=== PATIENT | male | born 1940 | race Caucasian/White ===

== ENCOUNTER 2020-03-06 11:05 | Outpatient (REF) | payer MEDICARE, SELFPAY ==
[2020-03-06 12:24] LABS: C Reactive Protein 0.03 mg/dL (< or = 0.50)
[2020-03-06 12:42] LABS: Erythrocyte Sedimentation Rate 7 MM/HR (0-15)
[2020-03-06 12:45] LABS: Vitamin D 25-OH Total 28.8 ng/mL (>30)
[2020-03-07 11:02] LABS: Lyme Abs Screen <0.90 index
== END 2020-03-06 11:06 | disposition home or self-care (01) ==
LOC: HO.LAB 11:05
PROVIDERS: PCP Internal Medicine; Visit Provider Internal Medicine
DX: M25.50 Pain in unspecified joint (principal); E55.9 Vitamin D deficiency, unspecified
CPT/HCPCS: 36415; 82306; 84550; 85652; 86140; 86618

== ENCOUNTER 2020-10-11 10:50 | Outpatient (REF) | payer MEDICARE, SELFPAY ==
[2020-10-11 13:00] LABS: Hemoglobin 12.7 g/dl (14.0-18.0); Mean Corpuscular HGB Conc 33.4 g/dl (31.0-36.0); Mean Corpuscular Hemoglobin 30.5 pg (27.0-33.0); Mean Corpuscular Volume 91.3 fL (80-98); Mean Platelet Volume 10.3 fL (9.4-12.4); Platelet Count 208 X10*3/uL (160-400); Red Blood Count 4.16 X10*6/uL (4.60-5.80); Red Cell Distribution Width 13.4 % (11.0-16.0)
[2020-10-11 13:18] LABS: Alanine Aminotransferase 20 U/L (0-40); Albumin Level 3.8 g/dL (3.5-5.0); Alkaline Phosphatase 74 U/L (39-117); Anion Gap 11 (12-20); Aspartate Amino Transferase 26 U/L (5-37); Bilirubin Total 0.9 mg/dL (0.0-1.0); Blood Urea Nitrogen 19 mg/dL (9-16); Calcium 8.4 mg/dL (8.4-10.2); Carbon Dioxide 27 mmol/L (22-29); Chloride 107 mmol/L (96-108); Cholesterol 211 mg/dL; Estimated Glomerular Filt Rate > 60; Glucose Fasting 89 mg/dL (60-99); HDL Cholesterol 56 mg/dL; LDL Cholesterol Calculated 142 mg/dl; Potassium 4.5 mmol/L (3.3-5.1); Sodium 140 mmol/L (135-145); Total Protein 6.1 g/dL (6.5-8.0); Triglycerides 65 mg/dL
[2020-10-11 13:45] LABS: Prostate Specific Antigen 4.94 ng/mL (<0.05-4.0)
== END 2020-10-11 10:51 | disposition home or self-care (01) ==
LOC: HO.MANLDS 10:50
PROVIDERS: PCP Internal Medicine; Visit Provider Internal Medicine
DX: N40.0 Benign prostatic hyperplasia without lower urinary tract symptoms (principal); E78.00 Pure hypercholesterolemia, unspecified; I10 Essential (primary) hypertension
CPT/HCPCS: 36415; 80053; 80061; 84153; 85027

== ENCOUNTER 2021-10-17 08:53 | Outpatient (REF) | payer MEDICARE, SELFPAY ==
[2021-10-17 11:03] LABS: MANUAL DIFF FLAG NO
[2021-10-17 11:07] LABS: Basophils Percent Auto 0.8 % (0-2); Eosinophils Absolute Auto 0.2 X10*3/uL (0.0-0.4); Hematocrit 41.8 % (42.0-52.0); Hemoglobin 14.1 g/dl (14.0-18.0); Imm Gran Abs Auto 0.01 X10*3/uL (0.00-0.03); Imm Gran Pct Auto 0.3 % (0.0-0.4); Lymphocytes Absolute Auto 1.8 X10*3/uL (1.2-4.9); Mean Corpuscular HGB Conc 33.7 g/dl (31.0-36.0); Mean Corpuscular Hemoglobin 30.4 pg (27.0-33.0); Mean Corpuscular Volume 90.1 fL (80.0-98.0); Mean Platelet Volume 10.5 fL (9.4-12.4); Monocytes Absolute Auto 0.5 X10*3/uL (0.1-1.2); Monocytes Percent Auto 11.8 % (2-11); Neutrophils Absolute Auto 1.3 x10*3/uL (2.0-8.3); Neutrophils Percent Auto 35.1 % (45-73); Platelet Count 217 X10*3/uL (160-400); Red Blood Count 4.64 X10*6/uL (4.60-5.80); Red Cell Distribution Width 13.2 % (11.0-16.0); White Blood Count 3.8 X10*3/uL (4.8-10.8)
[2021-10-17 11:43] LABS: Alanine Aminotransferase 11 U/L (0-40); Albumin Level 4.1 g/dL (3.5-5.0); Alkaline Phosphatase 78 U/L (39-117); Anion Gap 13 (12-20); Aspartate Amino Transferase 18 U/L (5-37); Bilirubin Total 0.7 mg/dL (0.0-1.0); Blood Urea Nitrogen 15 mg/dL (9-16); Carbon Dioxide 30 mmol/L (22-29); Chloride 105 mmol/L (96-108); Cholesterol 250 mg/dL; Estimated Glomerular Filt Rate > 60; Glucose Random 99 mg/dL (60-115); HDL Cholesterol 60 mg/dL; LDL Cholesterol Calculated 166 mg/dl; Potassium 4.7 mmol/L (3.3-5.1); Sodium 143 mmol/L (135-145); Total Protein 6.6 g/dL (6.5-8.0); Triglycerides 121 mg/dL
[2021-10-17 12:11] LABS: Prostate Specific Antigen 5.17 ng/mL (<0.05-4.0)
== END 2021-10-17 08:54 | disposition home or self-care (01) ==
LOC: HO.MANLDS 08:53
PROVIDERS: Visit Provider Internal Medicine
DX: Z00.01 Encounter for general adult medical examination with abnormal findings (principal); Z12.5 Encounter for screening for malignant neoplasm of prostate; N40.0 Benign prostatic hyperplasia without lower urinary tract symptoms; E78.00 Pure hypercholesterolemia, unspecified
CPT/HCPCS: 36415; 80053; 80061; 84153; 85025

== ENCOUNTER 2022-10-29 08:02 | Outpatient (REF) | payer MEDICARE, SELFPAY ==
[2022-10-29 13:42] LABS: MANUAL DIFF FLAG NO
[2022-10-29 13:46] LABS: Basophils Percent Auto 0.7 % (0-2); Eosinophils Absolute Auto 0.2 X10*3/uL (0.0-0.4); Eosinophils Percent Auto 3.4 % (0-4); Hematocrit 42.2 % (42.0-52.0); Hemoglobin 13.9 g/dl (14.0-18.0); Imm Gran Abs Auto 0.01 X10*3/uL (0.00-0.03); Imm Gran Pct Auto 0.2 % (0.0-0.4); Lymphocytes Percent Auto 46.5 % (20-40); Mean Corpuscular HGB Conc 32.9 g/dl (31.0-36.0); Mean Corpuscular Hemoglobin 30.1 pg (27.0-33.0); Mean Corpuscular Volume 91.3 fL (80.0-98.0); Mean Platelet Volume 10.4 fL (9.4-12.4); Monocytes Absolute Auto 0.6 X10*3/uL (0.1-1.2); Monocytes Percent Auto 12.5 % (2-11); Neutrophils Absolute Auto 1.6 x10*3/uL (2.0-8.3); Neutrophils Percent Auto 36.7 % (45-73); Platelet Count 234 X10*3/uL (160-400); Red Blood Count 4.62 X10*6/uL (4.60-5.80); Red Cell Distribution Width 13.4 % (11.0-16.0); White Blood Count 4.4 X10*3/uL (4.8-10.8)
[2022-10-29 14:13] LABS: Alanine Aminotransferase 12 U/L (0-40); Alkaline Phosphatase 70 U/L (39-117); Anion Gap 10 (12-20); Aspartate Amino Transferase 20 U/L (5-37); Bilirubin Total 0.5 mg/dL (0.0-1.0); Blood Urea Nitrogen 20 mg/dL (9-16); Calcium 9.8 mg/dL (8.4-10.2); Carbon Dioxide 30 mmol/L (22-29); Chloride 108 mmol/L (96-108); Cholesterol 254 mg/dL (<200); Estimated Glomerular Filt Rate > 60; Glucose Random 92 mg/dL (60-115); HDL Cholesterol 50 mg/dL (>40); LDL Cholesterol Calculated 172 mg/dL (<100); Potassium 4.9 mmol/L (3.3-5.1); Sodium 143 mmol/L (135-145); Total Protein 6.7 g/dL (6.5-8.0); Triglycerides 160 mg/dL (<150)
== END 2022-10-29 08:03 | disposition home or self-care (01) ==
LOC: HO.MANLDS 08:02
PROVIDERS: Visit Provider Physician Assistant
DX: E78.2 Mixed hyperlipidemia (principal)
CPT/HCPCS: 36415; 80053; 80061; 85025

== ENCOUNTER 2023-02-21 07:18 | Outpatient (REF) | payer MEDICARE, SELFPAY ==
[2023-02-21 13:26] LABS: MANUAL DIFF FLAG NO
[2023-02-21 13:36] LABS: Basophils Percent Auto 0.9 % (0-2); Eosinophils Absolute Auto 0.2 X10*3/uL (0.0-0.4); Eosinophils Percent Auto 5.3 % (0-4); Hematocrit 43.5 % (42.0-52.0); Hemoglobin 14.5 g/dl (14.0-18.0); Imm Gran Abs Auto 0.01 X10*3/uL (0.00-0.03); Imm Gran Pct Auto 0.2 % (0.0-0.4); Lymphocytes Absolute Auto 2.1 X10*3/uL (1.2-4.9); Mean Corpuscular HGB Conc 33.3 g/dl (31.0-36.0); Mean Corpuscular Hemoglobin 30.3 pg (27.0-33.0); Mean Corpuscular Volume 90.8 fL (80.0-98.0); Mean Platelet Volume 10.5 fL (9.4-12.4); Monocytes Absolute Auto 0.6 X10*3/uL (0.1-1.2); Monocytes Percent Auto 12.5 % (2-11); Neutrophils Absolute Auto 1.6 x10*3/uL (2.0-8.3); Neutrophils Percent Auto 34.1 % (45-73); Platelet Count 224 X10*3/uL (160-400); Red Blood Count 4.79 X10*6/uL (4.60-5.80); Red Cell Distribution Width 13.5 % (11.0-16.0); White Blood Count 4.6 X10*3/uL (4.8-10.8)
[2023-02-21 14:10] LABS: Alanine Aminotransferase 13 U/L (0-40); Albumin Level 3.8 g/dL (3.5-5.0); Alkaline Phosphatase 76 U/L (39-117); Anion Gap 11 (12-20); Aspartate Amino Transferase 22 U/L (5-37); Bilirubin Total 0.6 mg/dL (0.0-1.0); Blood Urea Nitrogen 17 mg/dL (9-16); Calcium 9.1 mg/dL (8.4-10.2); Carbon Dioxide 28 mmol/L (22-29); Chloride 105 mmol/L (96-108); Cholesterol 261 mg/dL (<200); Estimated Glomerular Filt Rate > 60; Glucose Random 85 mg/dL (60-115); HDL Cholesterol 58 mg/dL (>40); LDL Cholesterol Calculated 184 mg/dL (<100); Sodium 140 mmol/L (135-145); Total Protein 6.7 g/dL (6.5-8.0); Triglycerides 98 mg/dL (<150)
== END 2023-02-21 07:19 | disposition home or self-care (01) ==
LOC: HO.MANLDS 07:18
PROVIDERS: Visit Provider Internal Medicine
DX: E78.2 Mixed hyperlipidemia (principal)
CPT/HCPCS: 36415; 80053; 80061; 85025

== ENCOUNTER 2024-02-17 06:29 | Outpatient (REF) | payer MEDICARE, SELFPAY ==
--- OUTSIDE RECORDS SUMMARY | 2024-02-17 06:31 | XMS_ITS | Data Portability ---
Author Organization [facility] Address [address] [place] [address] Assessment Encounter Date Assessment Date Assessment LastModified by Organization Details LastModified Time 03/05/2023 03/05/2023 [id number] [place] [id number] (TUNNEL MAN) : MDM LOW MUST MEET 2 OF 3 ELEMENTS: PROBLEMS, DATA OR RISK ELEMENT 1: PROBLEMS ADDRESSED (LOW): 2 OR MORE SELF-LIMITED OR MINOR PROBLEMS OR 1 STABLE CHRONIC ILLNESS OR 1 ACUTE UNCOMPLICATED ILLNESS OR INJURY ELEMENT 2: DATA TO BE REVISED AND ANALYZED (LOW) MUST MEET 1 OF 2 CATEGORIES: CATEGORY 1. REVIEW OF PRIOR EXTERNAL NOTES/RESULTS, ORDERING OF TEST(S) CATEGORY 2. ASSESSMENT REQUIRING INDEPENDENT HISTORIAN(S) INCLUDE WHO THE HISTORIAN IS AND RELATION TO PT AND WHY PT IS UNABLE TO GIVE COMPLETE HISTORY ELEMENT 3: RISK (LOW) RISK OF COMPLICATIONS AND/OR MORBIDITY OR MORTALITY OF PATIENT MANAGEMENT PROVIDER MUST THOROUGHLY DOCUMENT ALL OF THE ELEMENTS COVERED Not available 03/05/2023 12:29:17 04/30/2023 04/30/2023 [id number] [place] [id number] (TUNNEL MAN) MDM MODERATE MUST MEET 2 OUT OF 3 ELEMENTS: PROBLEMS, DATA OR RISK ELEMENT 1: PROBLEMS ADDRESSED 1 OR MORE CHRONIC ILLNESS WITH EXACERBATION OR 2 OR MORE STABLE CHRONIC ILLNESSES OR 1 UNDIAGNOSED NEW PROBLEM OR 1 ACUTE ILLNESS W/SYMPTOMS OR 1 ACUTE COMPLICATED INJURY ELEMENT 2: DATA MUST MEET 1 OF 3 CATEGORIES CATEGORY 1: REVIEW OF PRIOR EXTERNAL NOTES, REVIEW OF RESULTS, ORDERING OF EACH TEST, ASSESSMENT REQUIRING INDEPENDENT HISTORIAN OR CATEGORY 2: INDEPENDENT INTERPRETATION OF TESTS BY ANOTHER PHYSICIAN OR SPECIALIST OR CATEGORY 3: DISCUSSION OF MGT OR TEST INTERPRETATION W/EXTERNAL PHYSICIAN OR SPECIALIST ELEMENT 3: RISK RISK OF COMPLICATIONS AND/OR MORBIDITY OR MORTALITY OF PATIENT MANAGEMENT PROVIDER MUST THOROUGHLY DOCUMENT EACH ELEMENT THAT IS COVERED Not available 04/30/2023 10:43:06 06/20/2023 06/20/2023 [id number] [place] [id number] (TUNNEL MAN) : MDM LOW MUST MEET 2 OF 3 ELEMENTS: PROBLEMS, DATA OR RISK ELEMENT 1: PROBLEMS ADDRESSED (LOW): 2 OR MORE SELF-LIMITED OR MINOR PROBLEMS OR 1 STABLE CHRONIC ILLNESS OR 1 ACUTE UNCOMPLICATED ILLNESS OR INJURY ELEMENT 2: DATA TO BE REVISED AND ANALYZED (LOW) MUST MEET 1 OF 2 CATEGORIES: CATEGORY 1. REVIEW OF PRIOR EXTERNAL NOTES/RESULTS, ORDERING OF TEST(S) CATEGORY 2. ASSESSMENT REQUIRING INDEPENDENT HISTORIAN(S) INCLUDE WHO THE HISTORIAN IS AND RELATION TO PT AND WHY PT IS UNABLE TO GIVE COMPLETE HISTORY ELEMENT 3: RISK (LOW) RISK OF COMPLICATIONS AND/OR MORBIDITY OR MORTALITY OF PATIENT MANAGEMENT PROVIDER MUST THOROUGHLY DOCUMENT ALL OF THE ELEMENTS COVERED Not available 06/20/2023 15:31:30 07/01/2023 07/01/2023 [id number] [place] [id number] (TUNNEL MAN) : [facility] LOW MUST MEET 2 OF 3 ELEMENTS: PROBLEMS, DATA OR RISK ELEMENT 1: PROBLEMS ADDRESSED (LOW): 2 OR MORE SELF-LIMITED OR MINOR PROBLEMS OR 1 STABLE CHRONIC ILLNESS OR 1 ACUTE UNCOMPLICATED ILLNESS OR INJURY ELEMENT 2: DATA TO BE REVISED AND ANALYZED (LOW) MUST MEET 1 OF 2 CATEGORIES: CATEGORY 1. REVIEW OF PRIOR EXTERNAL NOTES/RESULTS, ORDERING OF TEST(S) CATEGORY 2. ASSESSMENT REQUIRING INDEPENDENT HISTORIAN(S) INCLUDE WHO THE HISTORIAN IS AND RELATION TO PT AND WHY PT IS UNABLE TO GIVE COMPLETE HISTORY ELEMENT 3: RISK (LOW) RISK OF COMPLICATIONS AND/OR MORBIDITY OR MORTALITY OF PATIENT MANAGEMENT PROVIDER MUST THOROUGHLY DOCUMENT ALL OF THE ELEMENTS COVERED Not available 07/01/2023 12:37:57 09/24/2023 09/24/2023 [id number] [place] [id number] (TUNNEL MAN) [facility] MODERATE MUST MEET 2 OUT OF 3 ELEMENTS: PROBLEMS, DATA OR RISK ELEMENT 1: PROBLEMS ADDRESSED 1 OR MORE CHRONIC ILLNESS WITH EXACERBATION OR 2 OR MORE STABLE CHRONIC ILLNESSES OR 1 UNDIAGNOSED NEW PROBLEM OR 1 ACUTE ILLNESS W/SYMPTOMS OR 1 ACUTE COMPLICATED INJURY ELEMENT 2: DATA MUST MEET 1 OF 3 CATEGORIES CATEGORY 1: REVIEW OF PRIOR EXTERNAL NOTES, REVIEW OF RESULTS, ORDERING OF EACH TEST, ASSESSMENT REQUIRING INDEPENDENT HISTORIAN OR CATEGORY 2: INDEPENDENT INTERPRETATION OF TESTS BY ANOTHER PHYSICIAN OR SPECIALIST OR CATEGORY 3: DISCUSSION OF MGT OR TEST INTERPRETATION W/EXTERNAL PHYSICIAN OR SPECIALIST ELEMENT 3: RISK RISK OF COMPLICATIONS AND/OR MORBIDITY OR MORTALITY OF PATIENT MANAGEMENT PROVIDER MUST THOROUGHLY DOCUMENT EACH ELEMENT THAT IS COVERED Not available 09/24/2023 11:00:54 Plan of Treatment Reminders Order Date Submit Date Provider Last Modified By Organization Details Last Modified Time Details Appointments ANNUAL EXAM 2023 10:00A M DR PARKER Not available Not available Not available Lab lipid panel, blood 2023 024 [facility], [address] [place] [address], [id number], 06/20/2023 15:38:28 CMP, serum or plasma 2023 024 [facility], [address] [place] [address], [id number], 09/24/2023 11:16:39 CBC 2023 024 [facility], [address] [place] [address], [id number], 09/24/2023 11:16:39 lipid panel, blood 2023 024 [facility], [address] [place] [address], [place], [id number], 09/24/2023 11:16:40 PSA, serum or plasma 2023 024 [facility], [address] [place] [address], [id number], 09/24/2023 11:16:40 Referral None recorded. Procedures None recorded. Surgeries None recorded. Imaging None recorded. Medication Orders metoprolo l succinate ER 50 mg tablet,ex tended release 24 hr 2023 024 [facility] #[id number], [address] [place] [address], [id number], 06/20/2023 15:32:12 sildenafi l 100 mg tablet 2023 024 [id number], [address], [place], [id number], 04/30/2023 10:07:34 metoprolo l succinate ER 25 mg tablet,ex tended release 24 hr 2023 024 [facility] #[id number], [address], [place], [id number], 06/20/2023 15:32:09 metoprolo l succinate ER 100 mg tablet,ex tended release 24 hr 2023 024 [facility], [address] [place] [address], [id number], 06/20/2023 15:33:30 Patient TargetsNo targets recorded. Patient Instructions Encounter Date Encounter Id Patient Instructions Last Modified By Organization Details Last Modified Time 03/05/2023 [id number] Peripheral Arterial Disease (PAD): Care Instructions Not available 03/05/2023 12:27:46 09/24/2023 [id number] lumbar spinal stenosis: care instructions Not available 09/24/2023 11:02:43 benign prostatic hyperplasia: care instructions Not available 09/24/2023 11:05:36 Reason for Referral None Reported. Results Created Date Observation Date Name Description Value Unit Range Abnormal Flag Note LastModifiedBy Organization Detail LastModifiedTime Result Notes None recorded. Problems Name Problem SNOMED Code Status Onset Date Resolution Date Notes Provider Name and Address Organization Details Recorded Time Lumbar discogen ic pain 019157656 Active 2018 Not Available [facility] 12:37:02 Restless legs 82524041 Active 2019 Not Available [facility] 12:37:01 Eczema 47782321 Active 2019 Not Available [facility] 12:37:02 Decompre ssion of lumbar spine Completed 201804/26/2018 Benjamin Parker, DO [address] [place], [address], [facility] 12:47:08 Ventricu lar prematur e beats 46971685 Active 2020 Benjamin Parker, DO [address] [place], [address], [facility] 1 09:38:05 Hypercho lesterol emia 59514511 Active 2017 Not Available [facility] 1 12:37:01 Herniati on 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 79669211616 4106 Active 2017 Not Available [facility] 1 12:37:01 Divertic ular disease 203395379 Active 2017 Not Available [facility] 1 12:37:02 Benign prostati c hyperpla beth 459690194 Active 2017 Not Available [facility] 1 12:37:02 Spinal stenosis of lumbar region 80808277 Active 2017 Not Available [facility] 1 12:37:02 Lumbar radiculo connor 361178343 Active 2017 Not Available [facility] 1 12:37:01 Lumbar spondylo sis 293119233 Active 2017 Not Available [facility] 1 12:37:02 Carotid bruit 360118215 Active 2017 Not Available [facility] 1 12:37:01 Pain of right knee joint 63736019173 4100 Active 2021 Benjamin Parker, DO [address] [place], [address], [facility] 2 10:58:23 Osteoart hritis of right knee joint 53816723122 9100 Active 2021 Benjamin Parker, DO [address] [place], [address], [facility] 2 16:44:26 Acquired trigger finger 2027916 Active 2021 JOSE MARTIN [address] [place], [address], [facility] 2 11:01:31 Gastroen teritis 80635841 Active 2022 JOSE MARTIN [address] [place], [address], [facility] 3 14:58:17 Cough 02306716 Active 2022 JOSE MARTIN [address] [place], [address], [facility] 3 14:59:16 Intermit tent claudica tion 37450082 Active 2022 JOSE MARTIN [address] [place] [address], [address], [facility] 3 09:27:00 Pain of right shoulder joint 28033035589 614773 Active 2022 JOSE MARTIN [address] [place] [address], [address], [facility] 3 09:27:58 Acute urinary tract infectio n 537647132 Active 2022 JOSE MARTIN [address] [place] [address], [address], [facility] 3 11:49:42 Erectile dysfunct ion 341946925 Active 2022 Benjamin Parker, DO [address] [place] [address], [address], [facility] 3 15:58:08 Hyperten sive disorder 33517198 Active 2022 Benjamin Parker, DO [address] [place] [address], [address], [facility] 3 15:11:04 Peripher al vascular disease 205336530 Active 2023 Benjamin Parker DO [address] [place] [address], [address], [facility] 4 12:28:51 Cervico- occipita l neuralgi a 79655527 Active 2023 Benjamin Parker, DO [address] [place], [address], [facility] 4 11:01:06 Problem Notes None recorded. Procedures Surgical History Date Name Laterality Status Provider Name and Address Organization Details Recorded Time 8 Colonoscopy completed Yenifer Chawla [facility] 10/08/2017 10:01:09 Imaging Results None recorded. Procedure Notes None recorded. Medical Equipment None Reported. Allergies Allergen ID Allergen Name Allergen Category Reaction Reaction Severity Criticality Documentation Date Start Date Code Code System Note Provider Name and Address Organization Details Recorded Time 397 Product containin g 3-hydroxy -3-methyl glutaryl- coenzyme A reductase inhibitor (product) medicatio n myalgias (muscle pain) Not available Not available 05/07/2017 29491 009 SNOMED Yenifer adams [facility] 8 11:36:44 398 Substance with sulfonami de structure and antibacte rial mechanism of action (substanc e) medicatio n Not available Not available Not available 05/07/2017 58144 8003 SNOMED Yenifer adams [facility] 8 11:36:48 Medications Name Sig Start Date Stop Date Status Note LastModified by Organization Details LastModified Time prednisone 10 mg tablet take 4 tabs x 3 daystake 3 tabs x 3 days take 2 tabs x 3 daystake 1 tab x 3 days 10/28 completed Not Available Not Available Not Available doxycycline hyclate 100 mg capsule TK ONE C PO BID FOR 10 DAYS 04/26 completed Not Available Not Available Not Available sildenafil 50 mg tablet TAKE 1 TABLET BY MOUTH NEEDED FOR 30 DAYS. 04/30 completed Not Available Not Available Not Available benzonatate 200 mg capsule TAKE 1 CAPSULE BY MOUTH THREE TIMES DAILY FOR 7 DAYS NEEDED 05/03 completed Not Available Not Available Not Available metoprolol succinate ER 50 mg tablet,exte nded release 24 hr TAKE 1 TABLET BY MOUTH EVERY DAY 06/19 completed Not Available Not Available Not Available cephalexin 250 mg tablet TAKE 1 TABLET BY MOUTH THREE TIMES DAILY FOR 15 DAYS 02/05 completed Not Available Not Available Not Available metoprolol succinate ER 100 mg tablet,exte nded release 24 hr Take 1 tablet every day by oral route for 90 days. active Not Available Not Available No t Available clobetasol 0.05 % topical cream APPLY TOPICALLY TO THE AFFECTED AREA TWICE DAILY FOR 10 DAYS 02/05 completed Not Available Not Available Not Available ciprofloxac in 250 mg tablet TAKE 1 TABLET BY MOUTH EVERY 12 HOURS FOR 5 DAYS 05/03 completed Not Available Not Available Not Available aspirin 81 mg tablet,johnnie yed release Take 1 tablet every day by oral route. 09/23 completed Not Available Not Available Not Available sildenafil 100 mg tablet TAKE 1 TABLET BY MOUTH EVERY DAY 04/30 completed Not Available Not Available Not Available triamcinolo ne acetonide 0.1 % topical cream APPLY A THIN LAYER TO THE AFFECTED AREA(S) BY TOPICAL ROUTE 2 TIMES PER DAY active Not Available Not Available No t Available amoxicillin 500 mg tablet TAKE 1 TABLET BY MOUTH EVERY 8 HOURS FOR 10 DAYS 02/05 completed Not Available Not Available Not Available pramipexole 0.5 mg tablet TAKE 1 TABLET BY MOUTH ONCE DAILY 2023 active Not Available Not Available Not Avai lable tacrolimus 0.1 % topical ointment 08/18 completed Not Available Not Available Not Available Valtrex 1 gram tablet Take 1 tablet every 12 hours by oral route. 08/18 completed Not Available Not Available Not Available mupirocin 2 % topical ointment APPLY SMALL AMOUNT EXTERNALL Y TO THE AFFECTED AREA THREE TIMES DAILY 10/24 completed Not Available Not Available Not Available metoprolol succinate ER 25 mg tablet,exte nded release 24 hr TAKE 1 TABLET BY MOUTH EVERY DAY 06/19 completed Not Available Not Available Not Available Percocet 5 mg-325 mg tablet Take 1 tablet every 8 hours by oral route for 7 days. 10/28 completed Not Available Not Available Not Available terazosin 10 mg capsule TAKE 1 CAPSULE BY MOUTH DAILY 10/30 completed Not Available Not Available Not Available Metamucil (sugar) oral powder Take 1 tbsp every day by oral route. active Not Available Not Available No t Available rosuvastati n 5 mg tablet TAKE 1 TABLET BY MOUTH ONCE DAILY 10/24 completed Not Available Not Available Not Available Boostrix Tdap 2.5 Lf unit-8 mcg-5 Lf/0.5 mL intramuscul ar syringe 09/02 completed Not Available Not Available Not Available Central-Vit e 04/26 completed Not Available Not Available Not Available Vitamin D3 1000 units daily 12/24 completed Not Available Not Available Not Available Metamucil 10/24 completed Not Available Not Available Not Available multivitami n daily active Not Available Not Available Not Available Vitamin B Complex With C 1000 units daily active Not Available Not Available No t Available oxycodone 10 mg tablet Take 1 tablet 4 times a day by oral route as needed for 7 days. 10/28 completed Not Available Not Available Not Available GaviLyte-G 236 gram-22.74 gram-6.74 gram-5.86 gram oral solution 09/02 completed Not Available Not Available Not Available magnesium 400 mg (as magnesium oxide) capsule Take 1 capsule every day by oral route. 10/30 completed Not Available Not Available Not Available Fluad 2016- 65yr up(PF)45 mcg(15 mcgx3)/0.5 mL intramuscul ar syringe 09/02 completed Not Available Not Available Not Available Fluad Quad (6 5yr up)(PF) 60 mcg (15 mcg x 4)/0.5mL IM syringe ADMINISTE R 0.5ML IN THE MUSCLE DIRECTED 04/26 completed Not Available Not Available Not Available Mucinex Instasoothe Cough 5 mg-2 mg lozenges Take 1 lozenge 4 times a day by oral route as needed for 7 days. 05/03 completed Not Available Not Available Not Available Vitals Date Recorded Body height Body mass index (BMI) Body weight Heart rate Oxygen saturation Oxygen saturation in Arterial blood by Pulse oximetry Systolic blood pressure Diastolic blood pressure Provider Name and Address Organization Details Last Updated DateTime 4 165.1 cm 24.4 kg/m2 47327.6 4 g 57 /min 96 % 96 % 152 mm[Hg] 88 mm[Hg] Benjamin Parker, DO [address] [place], [address] [place] - [facility] 4 10:05:58 Date Recorded Body height Body mass index (BMI) Body weight Heart rate Oxygen saturation Oxygen saturation in Arterial blood by Pulse oximetry Systolic blood pressure Diastolic blood pressure Provider Name and Address Organization Details Last Updated DateTime 4 165.1 cm 24.5 kg/m2 99892.0 8 g 48 /min 98 % 98 % 168 mm[Hg] 92 mm[Hg] Kaycee Edson [facility] 4 15:01:32 Date Recorded Body height Body mass index (BMI) Body weight Heart rate Respiratory rate Oxygen saturation Oxygen saturation in Arterial blood by Pulse oximetry Systolic blood pressure Diastolic blood pressure Systolic blood pressure Diastolic blood pressure Provider Name and Address Organization Details Last Updated DateTime 4 165.1 cm 24.1 kg/m2 28361.8 9 g 48 /min 18 /min 98 % 98 % 180 mm[Hg] 100 mm[Hg] 168 mm[Hg] 96 mm[Hg] Zurdo Rincon [facility] 4 11:38:01 Date Recorded Body height Body mass index (BMI) Body weight Heart rate Oxygen saturation Oxygen saturation in Arterial blood by Pulse oximetry Systolic blood pressure Diastolic blood pressure Provider Name and Address Organization Details Last Updated DateTime 4 165.1 cm 24 kg/m2 12192.3 g 50 /min 97 % 97 % 140 mm[Hg] 80 mm[Hg] Milagros Costa [facility] 4 10:36:44 Social History Question Answer Notes LastModified by Organizat ion Details LastModified Time Tobacco Smoking Status Never Smoker Not Available [facility] 01/04/2020 03:36:24 What Was The Date Of Your Most Recent Tobacco Screening? 09/24/2023 Information not available 09/24/2023 Do You Or Have You Ever Used Any Other Forms Of Tobacco Or Nicotine? No [email or web address] Information not available 02/19/2023 Sex: Unknown Functional Status None recorded. Mental Status None recorded. Family History Nothing Reported. Medical History No medical history recorded. Immunizations Vaccine Type Date Status Note Provider Nam e and Address Organization Details Recorded Time COVID-19, mRNA, LNP-S, PF, 30 mcg/0.3 mL dose 1 completed Not Available [facility] 09/26/2022 09:41:57 COVID-19, mRNA, LNP-S, PF, 30 mcg/0.3 mL dose 1 completed Not Available [facility] 09/26/2022 09:41:57 Influenza, split virus, quadrivalent, preservative 1 completed Not Available [facility] 09/26/2022 09:41:57 Influenza, adjuvanted, quadrivalent, PF 0 completed Not Available [facility] 09/26/2022 09:41:57 COVID-19, mRNA, LNP-S, PF, 30 mcg/0.3 mL dose 1 completed Not Available [facility] 09/26/2022 09:41:57 COVID-19, mRNA, LNP-S, PF, 30 mcg/0.3 mL dose 2 completed Not Available [facility] 09/26/2022 09:41:57 influenza, unspecified formulation 2 completed Not Available [facility] 09/26/2022 09:41:57 pneumococcal, unspecified formulation 3 completed Milagros adams [facility] 02/05/2023 15:05:31 influenza nasal, unspecified formulation 3 completed Milagros adams [facility] 02/05/2023 15:06:01 tetanus toxoid, unspecified formulation 3 completed Milagros adams [facility] 02/05/2023 15:06:40 Tdap 8 completed Not Available [facility] 09/26/2022 09:41:57 pneumococcal polysaccharide PPV23 5 completed Not Available [facility] 09/26/2022 09:41:57 Pneumococcal conjugate PCV 13 2 completed Not Available [facility] 09/26/2022 09:41:57 zoster live 8 completed Not Available [facility] 09/26/2022 09:41:57 zoster live 8 completed Not Available [facility] 09/26/2022 09:41:57 Influenza, split virus, quadrivalent, preservative 0 completed Not Available [facility] 09/26/2022 09:41:57 Influenza, split virus, quadrivalent, preservative 8 completed Not Available [facility] 09/26/2022 09:41:57 Past Encounters Encounter ID Performer Location Encounter Start Date Encounter Closed Date Diagnosis/Indication Diagnosis SNOMED-CT Code Diagnosis ICD10 Code [id number] Benjamin Parker [facility] [address],[place] [facility] [place] [address] 07/22/2017 09:05:41 07/22/2017 10:04:56 Adult health examination 801514350 Z00.00 Restless legs 41316091 G 25.81 [id number] Ysabel Mena NP, [facility] [address] [place] [address],[place] [address] 09/02/2017 10:40:26 09/02/2017 11:50:25 Herpes zoster 1095574 B02.9 [id number] Benjamin Parker [address], [place] [facility] [place] [address] 08/18/2018 09:16:03 08/18/2018 10:30:17 Adult health examination 972094312 Z00.01 Active or passive immunization 659665567 Z23 Renewal of prescription 585907309 Z76.0 Restless legs 73922366 G 25.81 [id number] JOHAN Hui [facility] [address] [place] [address],[place] [address] 09/23/2018 14:59:56 09/23/2018 16:01:16 Acute low back pain 300191334 M54.5 Spinal erin nosis of lumbar region 77034898 M48.061 Lumbar radiculopathy 128 957140 M54.16 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 0293467394 90600 M53.80 [id number] Benjamin Parker [facility] [address] [place] [address], [place] [address] 11/10/2018 14:09:03 11/10/2018 15:42:41 Spinal stenosis of lumbar region 65203118 M48.061 [id number] Benjamin Parker [facility] [address] [place] [address],[place] [address] 12/07/2018 13:55:17 12/08/2018 11:09:39 Broad based intervertebral disc protrusion 252850580 M53.80 [id number] JOSE MARTIN [facility] [address] [place] [address] [place] [address] 10/29/2019 13:54:21 10/29/2019 15:29:41 Acne 17374650 L70.9 [id number] Benjamin Parker [facility] [address] [place] [address] [place] [address] 02/29/2020 08:40:50 02/29/2020 16:03:40 Hypercholesterolemia 27523877 E78.00 Knee pain 20112830 M25.5 69 Myalgia ca used by statin 3956562885 8402625 T46.6X5A Vitamin D deficiency 347 39866 E55.9 Multiple joint pain 3567 8005 M25.50 [id number] Benjamin Parker [facility] [address] [place] [address] [place] [address] 04/26/2020 11:49:00 04/26/2020 14:58:49 Carotid bruit 444573642 R09.89 Scalp folliculitis 52080 8003 L73.8 Myalgia ca used by statin 2688498590 8244446 T46.6X5A Vitamin D deficiency 347 92007 E55.9 [id number] Benjamin Parker [facility] [address] [place] [address] [place] [address] 10/24/2020 11:29:10 10/24/2020 12:18:27 Active or passive immunization 400788226 Z23 Adult heal th examination 780612999 Z00.01 Carotid bruit 577707963 R09.89 Intermitte nt claudication 02007781 I73.9 Renewal of prescription 000652737 Z76.0 [id number] Benjamin Parker [facility] Medicine [address] [place], [place] [address] [address] 11/21/2020 08:29:08 11/21/2020 16:19:33 Carotid atherosclerosis 110736023 I65.29 Irregular heart beat 361 176528 R00.8 [id number] Benjamin Parker [facility] [address] [address] 12/26/2020 09:08:40 12/26/2020 14:52:40 Ventricular premature beats 51334662 I49.3 Restless legs 08624966 G 25.81 [id number] Benjamin Parker [facility] Medicine [address] [place] [address] 10/30/2021 10:15:58 10/30/2021 11:15:54 Active or passive immunization 685628576 Z23 Adult heal th examination 044023575 Z00.01 Intermitte nt claudication 24007154 I73.9 Advance care planning 71 4647019 Z71.89 Renewal of prescription 543552819 Z76.0 Pain of ri ght knee joint 5674926286 40213 M25.561 [id number] ROHINI HEALY [facility] Medicine [address] [place] [address] 7 12/24/2021 10:27:59 12/24/2021 11:32:02 Acquired trigger finger [id number] M65.311 [id number] JOSE MARTIN [facility] Internal Medicine [address] [place] [address] 56668-180 7 03/06/2022 13:27:30 03/07/2022 12:01:11 Gastroenteritis [id number] K52.89 Cough [id number] R05.1 [id number] ROHINI HEALY [facility] Internal Medicine [address] [place] [address] 64690-794 7 05/03/2022 09:14:15 05/03/2022 11:21:28 Intermittent claudication 23507033 I73.9 Acquired t nuclear medicine specialist finger 6520907 M65.311 Pain of ri ght shoulder joint [id number] 9563793 M25.511 Hypercholesterolemia 136 57050 E78.2 [id number] Benjamin Parker [facility] Internal Medicine [address] [place] [address] 02/05/2023 14:57:15 02/07/2023 09:03:10 Active or passive immunization 211151210 Z23 Adult heal th examination 657186405 Z00.00 Benign pro static hyperplasia 967086831 N40.0 Hypercholesterolemia 136 21990 E78.2 Intermitte nt claudication 76179081 I73.9 Osteoarthr itis of right knee joint [id number] 71128 M17.11 Renewal of prescription 062301358 Z76.0 Restless legs 75930972 G 25.81 Erectile dysfunction 860 602911 F52.21 [id number] [facility] [address] [place] [address] 89419-099 7 02/19/2023 14:42:29 02/19/2023 16:02:11 Intermittent claudication 52193166 I73.9 Hypertensive disorder 38 424492 I10 [id number] Benjamin Parker [facility] Internal Medicine [address] [place] [address]174-251 7 03/05/2023 08:21:34 03/05/2023 14:07:45 Hypertensive disorder 41996467 I10 Erectile dysfunction 860 965459 F52.21 Peripheral vascular disease 715055872 I73.9 [id number] Benjamin Parker [facility] Internal [address] [address] 04/30/2023 10:00:26 05/02/2023 10:47:36 Hypertensive disorder 39483580 I10 Peripheral vascular disease 834301055 I73.9 Spinal erin nosis of lumbar region 55495061 M48.061 [id number] Benjamin Parker [facility] Internal Medicine [address] [place] [address]-022 7 06/20/2023 14:47:54 06/20/2023 15:47:18 Hypertensive disorder 08886551 I10 Hypercholesterolemia 136 82718 E78.2 Peripheral vascular disease 278028293 I73.9 [id number] Benjamin Parker [facility] Internal Medicine [address] [place] [address]54-214 7 07/01/2023 11:24:01 07/01/2023 13:33:26 Hypertensive disorder 54845248 I10 Hypercholesterolemia 136 30116 E78.2 [id number] Benjamin Parker DO [facility] Internal Medicine [address] [facility] [address] 09/24/2023 10:31:39 09/24/2023 13:42:08 Hypertensive disorder 10532018 I10 Intermitte nt claudication 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 [id number] Geoffrey S Growhoski [id number] Geoffrey S Growhoski 04/30/[address] [facility] [id number] Geoffrey S Growhoski [id number] Geoffrey S Growhoski 06/20/[address] [facility] [id number] Geoffrey S Growhoski [id number] Geoffrey S Growhoski 07/01/[address] [facility] [id number] Geoffrey S Growhoski [id number] Geoffrey S Growhoski 09/24/[address] [facility] [id number] Geoffrey S Growhoski [id number] Geoffrey S Growhoski Notes Date Note Type Note Provider Name and Address Organization Details Recorded Time 4 text/htm l Care Management - HypertensionReported bypatient.Self Care:not under emotional stress Severity:symptoms are improving; does not interfere with daily activities Associated Symptoms:no dizziness; no lightheadedness; no chest pain; no shortness of breath; no palpitations; no edema; no calf muscle cramps; no blurred vision; no confusion; no headaches; no fatigue patient is evaluated via tele/video assessment per patient consentduring current pandemic reviewed paper pt presented showed he had a recent bout of bpv (see sheet)and this has resolved and is not an issueno cp no sob Benjamin Parker, DO [address] [place], [address], [facility] Internal Medicine 03/05/2023 12:29:22 4 text/htm l here for rechk of his bpdoing ok overall no major complaints Benjamin Parker DO [address] [place], [address], [facility] Internal Medicine 04/30/2023 10:44:21 4 text/htm l Care Management - HypertensionReported bypatient.Self Care:not under emotional stress Severity:symptoms are improving; does not interfere with daily activities Associated Symptoms:no dizziness; no lightheadedness; no chest pain; no shortness of breath; no palpitations; no edema; no calf muscle cramps; no blurred vision; no confusion; no headaches; no fatigue here for rechk and noted that the bp have been elevated and that he has beenfollowing closely see that his bp is remaining elevated Benjamin Parker DO [address] [place], [address], [facility] Internal [facility] 06/20/2023 15:34:30 4 text/htm l Care Management - HypertensionReported bypatient.Self Care:not under emotional stress Severity:symptoms are improving; does not interfere with daily activities Associated Symptoms:no dizziness; no lightheadedness; no chest pain; no shortness of breath; no palpitations; no edema; no calf muscle cramps; no blurred vision; no confusion; no headaches; no fatigue here for rechk of his bp relates that he is not having any problem withhis bp doing well overall tolerates med Benjamin Parker DO [address] [place], [address], [facility] Internal Medicine 07/01/2023 12:40:15 4 text/htm l here for rechk and is doing wellno cp no sobrelates that he has remained active and does a lot of reading toobowels okback is ok legs are ok also has had an occ bout of occiptal neuralgiahome bp readings are good Benjamin Parker, DO [address] [facility], [place], [address], [facility] 09/24/2023 11:06:49
[2024-02-17 06:48] LABS: MANUAL DIFF FLAG NO
[2024-02-17 07:14] LABS: Basophils Absolute Auto 0.1 X10*3/uL (0.0-0.2); Eosinophils Absolute Auto 0.3 X10*3/uL (0.0-0.4); Eosinophils Percent Auto 5.3 % (0-4); Hematocrit 43.1 % (42.0-52.0); Hemoglobin 14.9 g/dl (14.0-18.0); Imm Gran Abs Auto 0.01 X10*3/uL (0.00-0.03); Imm Gran Pct Auto 0.2 % (0.0-0.4); Lymphocytes Absolute Auto 2.6 X10*3/uL (1.2-4.9); Lymphocytes Percent Auto 48.7 % (20-40); Mean Corpuscular HGB Conc 34.6 g/dl (31.0-36.0); Mean Corpuscular Volume 89.6 fL (80.0-98.0); Mean Platelet Volume 10.4 fL (9.4-12.4); Monocytes Absolute Auto 0.7 X10*3/uL (0.1-1.2); Monocytes Percent Auto 12.9 % (2-11); Neutrophils Absolute Auto 1.7 x10*3/uL (2.0-8.3); Neutrophils Percent Auto 31.9 % (45-73); Platelet Count 197 X10*3/uL (160-400); Red Blood Count 4.81 X10*6/uL (4.60-5.80); Red Cell Distribution Width 13.1 % (11.0-16.0); White Blood Count 5.3 X10*3/uL (4.8-10.8)
[2024-02-17 07:49] LABS: Alanine Aminotransferase 16 U/L (0-40); Albumin Level 3.9 g/dL (3.5-5.0); Alkaline Phosphatase 76 U/L (39-117); Anion Gap 12 (12-20); Aspartate Amino Transferase 25 U/L (5-37); Bilirubin Total 0.7 mg/dL (0.0-1.0); Blood Urea Nitrogen 15 mg/dL (9-16); Calcium 8.9 mg/dL (8.4-10.2); Carbon Dioxide 30 mmol/L (22-29); Chloride 104 mmol/L (96-108); Cholesterol 273 mg/dL (<200); Estimated Glomerular Filt Rate > 60; Glucose Random 93 mg/dL (60-115); HDL Cholesterol 53 mg/dL (>40); LDL Cholesterol Calculated 196 mg/dL (<100); Potassium 4.3 mmol/L (3.3-5.1); Sodium 142 mmol/L (135-145); Total Protein 6.9 g/dL (6.5-8.0); Triglycerides 120 mg/dL (<150)
[2024-02-17 08:24] LABS: Prostate Specific Antigen 7.49 ng/mL (<0.05-4.0)
== END 2024-02-17 06:30 | disposition home or self-care (01) ==
LOC: HO.LAB 06:29
PROVIDERS: PCP Internal Medicine; Visit Provider Internal Medicine
DX: I10 Essential (primary) hypertension (principal); E78.2 Mixed hyperlipidemia; Z12.5 Encounter for screening for malignant neoplasm of prostate
CPT/HCPCS: 36415; 80053; 80061; 84153; 85025

== ENCOUNTER 2025-02-28 07:45 | Outpatient (REF) | payer MEDICARE, SELFPAY ==
--- OUTSIDE RECORDS SUMMARY | 2025-02-28 07:47 | XMS_ITS | Encounter Summary ---
Author Organization [facility] Address [address] [address] Phone Care Team Providers Care Optics Engineer Name Role Phone Benjamin Hurtado DO Primary Care Provider [phone] Encounter Details Date Type Department Care Team (Late st Contact Info) Description 07/14/2017 Transcribe Orders [facility] Phle[facility] [address] [address] Benjamin Hurtado DO [address] [facility] [place] [address] [email or web address] Essential hypertension, benign (Primary Dx) Social History Tobacco Use Types Packs/Day Years Used Date Smoking Tobacco: Never Assessed Sex and Gender Information Value Date Recorded Sex Assigned at Not on file Legal Sex Male 10:13 PM EDT Gender Identity Not on file Sexual Orientation Not on file documented as of this encounter Plan of Treatment Not on file documented as of this encounter Results * (ABNORMAL) Comprehensive metabolic panel (07/14/2017 8:42 AM EDT) SODIUM 147(H) 133 - 146 mmol/L [facility] POTASSIUM 4.6 3.3 - 5.1 mmol/L [facility] CHLORIDE 98 96 - 108 mmol/L [facility] CO2 28 21 - 35 mmol/L [facility] BUN 20(H) 6 - 19 mg/dL [facility] CREATININE 0.90 0.5 - 1.5 mg/dL [facility] GLUCOSE 95 70 - 99 mg/dL [facility] ALBUMIN 3.8(L) 3.9 - 4.8 g/dL [facility] TOTAL PROTEIN 6.8 6.5 - 8.0 g/dL [facility] CALCIUM 8.9 8.4 - 10.3 mg/dL [facility] ALKALINE PHOSPHATASE 70 39 - 117 U/L [facility] TOTAL BILIRUBIN 0.6 0.0 - 1.2 mg/dL [facility] AST 25 0 - 37 U/L [facility] ALT 19 0 - 40 U/L [facility] GLOBULIN 3.0 1 - 4.8 g/dL [facility] EGFR 81 >59 mL/min/1.7 3m2 [facility] Comment:If patient is black, multiply result by 1.159. The eGFR calculation has changed from the MDRD equation to the CKD-EPI equation as of May 06, 2017. ANION GAP 26(H) 10 - 20 mmol/L [facility] Blood 07/14/2017 8:42 AM EDT 07/14/2017 12:56 PM EDT us Benjamin A Bigda DO LAB BLOOD BKR ORDERABLES Final R esult Performing Organization Address [facility] Co de Phone Number [address] [address] * Hemoglobin A1c (07/14/2017 8:42 AM EDT) HEMOGLOBIN A1C 5.4 4.3 - 5.8 % [facility] Blood 07/14/2017 8:42 AM EDT 07/14/2017 12:56 PM EDT us Benjamin A BigActive Circle DO LAB BLOOD BKR ORDERABLES Final R esult Performing Organization Address [facility] Co de Phone Number [address] [address] * (ABNORMAL) Lipid panel (07/14/2017 8:42 AM EDT) HDL 67 mg/dL [facility] Comment: Interpretation: Risk Level Males Decreased >45 mg/dL Average 40-45 mg/dL Increased <40 mg/dL CHOLESTEROL 154 0 - 240 mg/dL [facility] TRIGLYCERIDES 102 30 - 160 mg/dL [facility] LDL 67 50 - 129 mg/dL [facility] Comment: LDL levels in terms of risk for coronary heart disease: <100 mg/dL: Optimal 100-129 mg/dL: Near or above optimal 130-159 mg/dL: Borderline high 160-189 mg/dL: High >190 mg/dL: Very High CARDIAC RISK RATIO 2.3(L) 3.4 - 5.0 C [facility] Blood 07/14/2017 8:42 AM EDT 07/14/2017 12:56 PM EDT us Benjamin Hurtado DO LAB BLOOD BKR ORDERABLES Final R esult [address] [address] documented in this encounter Visit Diagnoses Diagnosis Essential hypertension, benign- Primary documented in this encounter Additional Health Concerns Infection Onset Date Last Indicated Resolved Time CoV-Risk 10/08/2023 10/08/2023 10/19/2023 1:21 AM EDT CoV-Risk 11/05/2023 11/05/2023 11/05/2023 12:1 4 PM EDT COVID-19 11/05/2023 11/05/2023 11/26/2023 1:24 AM EDT documented as of this encounter Care Teams Optics Engineer Relationship Specialty Start Date End Date Benjamin Hurtado DO PCP - General 12/17/16 documented as of this encounter Additional Source Comments The information contained in this document represents components of the legal health record. It is not the complete legal health record.[facility]
--- OUTSIDE RECORDS SUMMARY | 2025-02-28 07:47 | XMS_ITS | Clinical Summary ---
Author Organization [facility] Address [address] [address] Phone Care Team Providers Care Lasting Floorworker Name Role Phone AlisiaangelaBenjamin DO Primary Care Provider [phone] Allergies No known active allergies Medications rosuvastatin (CRESTOR) 5 MG tablet Take 5 mg by mouth daily. Active terazosin (HYTRIN) 10 MG capsule Take 10 mg by mouth nightly at bedtime. Active multivitamins with minerals- folic acid-lycopene (MEN'S ONE-A-DAY) 400-20-300 mcg Tab Take 1 tablet by mouth daily. Active lovastatin (MEVACOR) 20 MG tablet Active psyllium (METAMUCIL) 0.4 gram capsule Metamucil Active mv,Ca,min-folic acid-vit K1 400-20 mcg Tab Activ e folic acid-Vit B complex with C (NEPHRONEX) 900 mcg/5 mL Liqd Active clindamycin phosphate 1 % glqd 1 application a thin film to affected area 1 Active fluticasone propionate (FLONASE) 50 mcg/actuation nasal spray 0 Active terazosin (HYTRIN) 10 MG capsule Active pravastatin (PRAVACHOL) 40 MG tablet Take 40 mg by mouth daily. Active cephalexin 250 mg tablet TAKE 1 TABLET BY MOUTH THREE TIMES DAILY FOR 15 DAYS 3 Active pramipexole (MIRAPEX) 0.5 MG tablet 3 Active metoprolol succinate (TOPROL-XL) 100 MG 24 hr tablet Take 1 tablet every day by oral route for 90 days. Active Active Problems No known active problems Immunizations Immunization Administration Dates Next Due COVID-19 (Pre-12/23) Pfizer Vaccine, Bivalent 12+ 11/15/2021 COVID-19 (Pre-12/23) Pfizer Vaccine, mRNA, PF 11/15/2021,12/13/2020 Influenza High-Dose Quadriva lent Preservative Free IM 11/22/2022,11/15/2021 Influenza High-Dose Trivalen t Preservative Free IM 11/04/2018,10/24/2017,11/01/2014 Influenza Quadrivalent Adjuv anted Preservative Free IM 11/21/2020,11/25/2019 Influenza Trivalent Adjuvant ed Preservative free IM 12/17/2016,11/10/2015 Pneumococcal conjugate PCV13 11/01/2014,01/03/20 12 Pneumococcal polysaccharide PPSV23 11/01/2014 RSV Vaccine (bivalent) 11/22/2022 Tdap 01/16/2023,07/22/2017 Zoster recombinant 01/20/2018,10/24/2017 Social History Tobacco Use Types Packs/Day Years Used Date Smoking Tobacco: Never Smokeless Tobacco: Never Alcohol Use Standard Drinks/Week Comments Yes 1 (1 standard drink = 0.6 oz pur e alcohol) occasional Education Answer Date Recorded Are you interested in more education? Not on jarocho e 06/28/2022 Are you concerned about learning? Not on file 06/28/2022 No 06/28/2022 No 06/28/2022 Digital Access Answer Date Recorded No 07/29/2022 No 07/29/2022 Reliable internet access at home? Not on file 07/29/2022 Device with a working camera? Not on file Sex and Gender Information Value Date Recorded Sex Assigned at Not on file Legal Sex Male 10:13 PM EDT Gender Identity Not on file Sexual Orientation Not on file Last Filed Vital Signs Vital Sign Reading Time Taken Comments Blood Pressure 169/80 11/05/2023 11:25 AM EDT Pulse 53 11/05/2023 11:25 AM EDT Temperature 36.1 C (97 F) 11/05/2023 11:25 AM EDT Respiratory Rate 17 11/05/2023 11:25 AM EDT Oxygen Saturation 98% 11/05/2023 11:25 AM EDT Inhaled Oxygen Concentration - - Weight 61.2 kg (135 lb) 11/05/2023 11:25 AM EDT Height 167.6 cm (5' 6 ) 11/05/2023 11:25 AM EDT Body Mass Index 21.79 11/05/2023 11:25 AM EDT Plan of Treatment Health Maintenance Due Date Last Done Comments DEPRESSION SCREENING 1952 INFLUENZA VACCINE (#1) 2024 , 11/15/2021, 11/21/2020, Additional history exists COVID-19 VACCINE ( season) 2024 11/22/2022, 11/15/2021, 11/15/2021, Additional history exists Adult Td,Tdap Booster 01/16/2033 01/16/2023, 018 PNEUMOCOCCAL VACCINES (50+ years) Completed 11/01/2014, 11/01/2014, 01/03/2012 ZOSTER VACCINES Completed 01/20/2018, 10/24/2017 RSV VACCINE Completed 11/22/2022 HEPATITIS A VACCINES Aged Out No long er eligible based on patient's age to complete this topic HIB VACCINES Aged Out No longer eligi ble based on patient's age to complete this topic MENINGOCOCCAL VACCINES (ACWY) Aged Out No longer eligible based on patient's age to complete this topic MENINGOCOCCAL VACCINES (B) Aged Out N o longer eligible based on patient's age to complete this topic Medical Devices Implanted Type Area Arranger Assembler Device Identifier Shelf Expiration Date Model / Serial / Lot Shoulder Description:Left shoulder sc rew Insurance [employer] H[employer] REPLACEMENT MEDICARE HMO REPLACEMENT [employer] RE[employer] MEDICARE HMO REPLACEMENT [employer] Care Teams Lasting Floorworker Relationship Specialty Start Date End Date Benjamin Hurtado DO PCP - General 12/17/16 Additional Source Comments The information contained in this document represents components of the legal health record. It is not the complete legal health record.[facility]
--- OUTSIDE RECORDS SUMMARY | 2025-02-28 07:47 | XMS_ITS | Data Portability ---
Author Organization [facility], Telehealth Patient Home Address [address] [place] [address] Assessment Encounter Date Assessment Date Assessment LastModified by Organization Details LastModified Time 07/07/2024 07/07/2024 [id number] [place] [id number] (MELON PACKER) MDM MODERATE MUST MEET 2 OUT OF [...] EACH ELEMENT THAT IS COVERED Not available 07/07/2024 10:43:45 08/30/2024 08/30/2024 [id number] [place] [id number] (MELON PACKER) MDM MODERATE MUST MEET 2 OUT OF [...] EACH ELEMENT THAT IS COVERED Not available 08/30/2024 09:54:33 10/25/2024 10/25/2024 [id number] [place] [id number] (MELON PACKER) : MDM LOW MUST MEET 2 OF [...] ALL OF THE ELEMENTS COVERED Not available 10/25/2024 13:52:04 Plan of Treatment Reminders Order Date Submit Date Provider Last Modified By Organization Details Last Modified Time Details Appointments MEDICARE ANNUAL WELLNESS 2024 10:30A M DR PARKER Not available Not available Not available Lab urinalysi s, dipstick 2024 025 Pending sale to [facility], [address] [facility], [address], [place], [address], 10/11/2024 15:42:25 urinalysi s complete, reflex culture 2024 025 [facility], [address] [place] [address], [id number], 10/12/2024 08:33:27 CMP, serum or plasma 2024 025 [facility], [address] [place] [address], [id number], 07/07/2024 11:10:41 CBC 2024 025 [facility], [address] [place] [address], [id number], 07/07/2024 11:10:40 PSA, serum or plasma 2024 025 [facility], [address] [place] [address], [id number], 07/07/2024 11:10:41 lipid panel, blood 2024 025 [facility], [address] [place] [address], [id number], 07/07/2024 11:10:40 Referral None recorded. Procedures None recorded. Surgeries None recorded. Imaging None recorded. Medication Orders nitrofura ntoin monohydra te/macroc rystals 100 mg capsule 2024 025 [id number], [address], [place], [phone], 10/25/2024 13:53:49 lisinopri l 20 mg tablet 2024 025 [facility], [address], [place], [address], 08/30/2024 09:55:14 lisinopri l 10 mg tablet 2024 025 [id number], [address], [place], [phone], 09/06/2024 08:53:23 Patient TargetsNo targets recorded. Patient InstructionsNo instructions recorded. Reason for Referral None Reported. Results Created Date Observation Date Name Description Value Unit Range Abnormal Flag Note LastModifiedBy Organization Detail LastModifiedTime 10/12/1910/11/2024 urina lysis , dipst ick Leukocytes Modera te Not Available [facility] [address] [facility] [address], [place], [address], 10/11/2024 14:47:29 10/12/1910/11/2024 urina lysis , dipst ick Nitrite positi ve Not Available [facility] [address] [facility] [address], [place], [address], 10/11/2024 14:47:29 10/12/19 25 10/11/2024 urina lysis , dipst ick Urobilinogen 2 Not Available [facility] [address] [facility] [address], [place], [address], 10/11/2024 14:47:29 10/12/19 25 10/11/2024 urina lysis , dipst ick Protein Negati ve Not Available [facility] [address] [facility] [address], [place], [address], 10/11/2024 14:47:29 10/12/19 25 10/11/2024 urina lysis , dipst ick pH 6.0 Not Available [address], [place], [address], 10/11/2024 14:47:29 10/12/19 25 10/11/2024 urina lysis , dipst ick Blood Negati ve Not Available [facility] [address] [place] [address] [address], [place], [address], 10/11/2024 14:47:29 10/12/1910/11/2024 urina lysis , dipst ick Specific [place] 1.005 Not Available [address], [place], [address], 10/11/2024 14:47:29 10/12/1910/11/2024 urina lysis , dipst ick Ketone Small Not Available [facility] [address] [facility] [address], [place], [address], 10/11/2024 14:47:29 10/12/1910/11/2024 urina lysis , dipst ick Bilirubin Negati ve Not Available [facility] [address] [facility] [address], [place], [address], 10/11/2024 14:47:29 10/12/19 25 10/11/2024 urina lysis , dipst ick Glucose Negati ve Not Available [facility] [address] [facility] [address], [place], [address], 10/11/2024 14:47:29 10/12/1910/11/2024 urina lysis , dipst ick Appearance Cloudy Not Available [facility] [address] [facility] [address], [place], [address], 10/11/2024 14:47:29 10/12/1910/11/2024 urina lysis , dipst ick Color Yellow Not Available [facility] [address] [facility] [address], [place], [address], 10/11/2024 14:47:29 Result Notes None recorded. 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 47891141959 4106 Active 2017 Not Available [facility] 12:37:01 Divertic ular disease 258419199 Active 2017 Not Available [facility] 12:37:02 Benign prostati c hyperpla beth 730876448 Active 2017 Not Available [facility] 12:37:02 Spinal stenosis of lumbar region 46846665 Active 2017 Not Available [facility] 12:37:02 Lumbar radiculo connor 448154842 Active 2017 Not Available [facility] 12:37:01 Lumbar spondylo sis 371095989 Active 2017 Not Available [facility] 12:37:02 Carotid bruit 585587478 Active 2017 Not Available [facility] 12:37:01 Decompre ssion of lumbar spine Completed 201804/26/2018 Benjamin Parker, DO [address] [place], [address], [facility] 1 12:47:08 Lumbar discogen ic pain 989102314 Active 2018 Not Available [facility] 1 12:37:02 Restless legs syndrome 53697341 Active 2019 Not Available [facility] 1 12:37:01 Eczema 28261209 Active 2019 Not Available [facility] 1 12:37:02 Ventricu lar prematur e beats 63660458 Active 2020 Benjamin Parker, DO [address] [place], [address], [facility] 1 09:38:05 Pain of right knee joint 32551872941 4100 Active 2021 Benjamin Parker DO [address] [place] [place] [address], [address], [facility] 2 10:58:23 Osteoart hritis of right knee joint 43282095758 9100 Active 2021 Benjamin Parker DO [address] [place] [place] [address], [address], [facility] 2 16:44:26 Acquired trigger finger 9629541 Active 2021 JOSE MARTIN [address] [place] [place] [address], [address], [facility] 2 11:01:31 Gastroen teritis 81555863 Active 2022 JOSE MARTIN [address] [place] [place] [address], [address], [facility] 3 14:58:17 Cough 53004183 Active 2022 JOSE MARTIN [address] [place], [address], [facility] 3 14:59:16 Intermit tent claudica tion 56530410 Active 2022 JOSE MARTIN [address] [place], [address], [facility] 3 09:27:00 Pain of right shoulder joint 97204674426 329425 Active 2022 JOSE MARTIN [address] [place], [address], [facility] 3 09:27:58 Acute urinary tract infectio n 744789837 Active 2022 JOSE MARTIN [address] [place], [address], [facility] 5 15:06:55 Erectile dysfunct ion 925920821 Active 2022 Benjamin Parker, DO [address] [place] [place] [address], [address], [facility] 3 15:58:08 Hyperten sive disorder 73206080 Active 2022 Benjamin Parker DO [address] [place] [address], [address], [facility] 3 15:11:04 Peripher al vascular disease 818031864 Active 2023 Benjamin Parker DO [address] [place] [address], [address], [facility] 4 12:28:51 Cervico- occipita l neuralgi a 57361628 Active 2023 Benjamin Parker DO [address] [place] [address], [address], [facility] 4 11:01:06 Problem Notes None recorded. Procedures Surgical History Date Name Laterality Status Provider Name and Address Organization Details Recorded Time 8 Colonoscopy completed Yenifer Chawla [facility] 10/08/2017 10:01:09 Imaging Results None recorded. Procedure Notes None recorded. Medical Equipment None Reported. Allergies Allergen ID Allergen Name Allergen Category Reaction Reaction Severity Criticality Documentation Date Start Date Code Code System Note Provider Name and Address Organization Details Recorded Time 397 Product containin g 3-hydroxy -3-methyl glutaryl- coenzyme A reductase inhibitor (product) medicatio n myalgias (muscle pain) Not available Not available 05/07/2017 47258 009 [facility] 8 11:36:44 398 Substance with sulfonami de structure and antibacte rial mechanism of action (substanc e) medicatio n Not available Not available Not available 05/07/2017 58663 8003 [facility] DARLENE [facility] 8 11:36:48 Medications Name Sig Start Date [...] completed Not Available Not Available Not Available lisinopril 20 mg tablet Take 1 tablet every day by oral route for 90 days. 2024 active Not Available Not Available Not Avai lable prednisone 20 mg tablet 02/26 completed Not Available Not Available Not Available cephalexin 250 mg tablet TAKE 1 TABLET BY MOUTH THREE TIMES DAILY FOR 15 DAYS 02/05 completed Not Available Not Available Not Available metoprolol succinate ER 100 mg tablet,exte nded release 24 hr TAKE 1 TABLET BY MOUTH DAILY 2024 active Not Available Not Available Not Avai lable clobetasol 0.05 % topical cream APPLY TOPICALLY TO THE AFFECTED AREA TWICE DAILY FOR 10 DAYS 02/05 completed Not Available Not Available Not Available ciprofloxac in 250 mg tablet TAKE 1 TABLET BY MOUTH EVERY 12 HOURS FOR 5 DAYS 05/03 completed Not Available Not Available Not Available aspirin 81 mg tablet,johnnie yed release Take 1 tablet every day by oral route. 2024 active Not Available Not Available Not Avai lable sildenafil 100 mg tablet TAKE 1 TABLET BY MOUTH EVERY DAY 04/30 completed Not Available Not Available Not Available triamcinolo ne acetonide 0.1 % topical cream APPLY A THIN LAYER TO THE AFFECTED AREA(S) BY TOPICAL ROUTE 2 TIMES PER DAY 02/26 completed Not Available Not Available Not Available amoxicillin 500 mg tablet TAKE 1 TABLET BY MOUTH EVERY 8 HOURS FOR 10 DAYS 02/05 completed Not Available Not Available Not Available pramipexole 0.5 mg tablet TAKE 1 TABLET BY MOUTH ONCE DAILY 2024 active Not Available Not Available Not Avai lable benzonatate 100 mg capsule 02/26 completed Not Available Not Available Not Available tacrolimus 0.1 % topical ointment 08/18 completed Not Available Not Available Not Available lisinopril 10 mg tablet TAKE 1 TABLET BY MOUTH EVERY DAY 09/06 completed Not Available Not Available Not Available [...] 1 tbsp every day by oral route. 02/26 completed Not Available Not Available Not Available rosuvastati n 5 mg tablet TAKE 1 TABLET BY MOUTH ONCE DAILY 10/24 completed Not Available Not Available Not Available nitrofurant oin monohydrate /macrocryst als 100 mg capsule TAKE 1 CAPSULE BY MOUTH EVERY 12 HOURS FOR 10 DAYS 10/25 completed Not Available Not Available Not Available [...] (BMI) Body weight Heart rate Oxygen saturation Systolic And Diastolic Provider Name and Address Organization Details Last Updated DateTime 5 165.1 cm 24.1 kg/m2 30440.8 9 g 50 /min 97 % 140/100 mm[Hg] Mil[facility]ros [facility] 5 10:14:48 Date Recorded Body height Body mass index (BMI) Body weight Heart rate Oxygen saturation Systolic And Diastolic Provider Name and Address Organization Details Last Updated DateTime 5 165.1 cm 24.1 kg/m2 35907.8 9 g 51 /min 98 % 130/90 mm[Hg] Benjamin Parker DO [address] [place], [address], [facility] 5 09:39:04 Date Recorded Body height Body mass index (BMI) Body weight Oxygen saturation Heart rate Systolic And Diastolic Provider Name and Address Organization Details Last Updated DateTime 5 165.1 cm 23.7 kg/m2 74999.2 7 g 96 % 47 /min 116/72 mm[Hg] DARIAN WHITFIELD [facility] 5 09:18:06 Date Recorded Body height Body mass index (BMI) Body weight Heart rate Oxygen saturation Systolic And Diastolic Provider Name and Address Organization Details Last Updated DateTime 5 165.1 cm 23.7 kg/m2 52211.8 4 g 50 /min 97 % 138/74 mm[Hg] Kaycee Sandhu [facility] 5 14:55:06 Date Recorded Heart rate Provider Name an d Address Organization Details Last Updated DateTime 10/25/2024 58 /min Marlon Kurtz O [address] [place], [address], [facility] 10/25/2024 13:53:04 Date Recorded Body height Body mass index (BMI) Body weight Oxygen saturation Systolic And Diastolic Systolic And Diastolic Provider Name and Address Organization Details Last Updated DateTime 5 165.1 cm 23.7 kg/m2 05022.5 5 g 95 % 122/78 mm[Hg] 196/96 mm[Hg] DARIAN WHITFIELD [facility] 5 13:32:31 Social History Question Answer Notes LastModified by Organizat ion Details LastModified Time Tobacco Smoking Status Never Smoker Not Available [facility] 01/04/2020 03:36:24 What Was The Date Of Your Most Recent Tobacco Screening? 10/25/2024 [email or web address] Information not available 10/25/2024 Sex: Unknown Functional Status Question Answer Note LastModified by Organization D etails LastModified Time Do you or have you ever used any other forms of tobacco or nicotine? No [email or web address] Information not available 02/19/2023 Mental Status None recorded. Family History Nothing Reported. Medical History No medical history recorded. Immunizations Vaccine Type Date Status Note Provider Nam e and Address Organization Details Recorded Time COVID-19, mRNA, LNP-S, PF, 30 mcg/0.3 mL dose 1 completed Not Available [facility] 09/26/2022 09:41:57 COVID-19, mRNA, LNP-S, PF, 30 mcg/0.3 mL dose 1 completed Not Available [facility] 09/26/2022 09:41:57 Influenza, split virus, quadrivalent, preservative 1 completed Not Available [facility] 09/26/2022 09:41:57 Influenza, adjuvanted, quadrivalent, PF 0 completed Not Available [facility] 09/26/2022 09:41:57 COVID-19, mRNA, LNP-S, PF, 30 mcg/0.3 mL dose 1 completed Not Available [facility] 09/26/2022 09:41:57 COVID-19, mRNA, LNP-S, PF, 30 mcg/0.3 mL dose 2 completed Not Available [facility] 09/26/2022 09:41:57 influenza, unspecified formulation 2 completed Not Available [facility] 09/26/2022 09:41:57 pneumococcal, unspecified formulation 3 completed Milagros adams [facility] 02/05/2023 15:05:31 influenza nasal, unspecified formulation 3 completed Milagros adams [facility] 02/05/2023 15:06:01 tetanus toxoid, unspecified formulation 3 completed Milagros adams [facility] 02/05/2023 15:06:40 Tdap 8 completed Not Available [facility] 09/26/2022 09:41:57 pneumococcal polysaccharide PPV23 5 completed Not Available [facility] 09/26/2022 09:41:57 Pneumococcal conjugate PCV 13 2 completed Not Available [facility] 09/26/2022 09:41:57 zoster live 8 completed Not Available [facility] 09/26/2022 09:41:57 zoster live 8 completed Not Available [facility] 09/26/2022 09:41:57 Influenza, split virus, quadrivalent, preservative 0 completed Not Available [facility] 09/26/2022 09:41:57 Influenza, split virus, quadrivalent, preservative 8 completed Not Available [facility] 09/26/2022 09:41:57 Past Encounters Encounter ID Performer Location Encounter Start Date Encounter Closed Date Diagnosis/Indication Diagnosis SNOMED-CT Code Diagnosis ICD10 Code Diagnosis IMO Codes Diagnosis Note [id number] Benjamin Parker [facility] [address] [facility],[place] [address] 07/22/2017 09:05:41 07/22/2017 10:04:56 Adult health examination 027663404 Z00.00 reviewed .lab in detail and is perfect told pt to continue doing what hes doing as he is in fantastic shape for his age will be callilng derm to address the rash on the l face Restless l egs syndrome 55212238 G25.81 [id number] Benjamin Parker [facility] [address] [facility],[place] [address] 09/02/2017 10:40:26 09/02/2017 11:50:25 Herpes zoster 6656981 B02.9 [id number] Benjamin Parker [facility] [address] [facility],[place] [address] 08/18/2018 09:16:03 08/18/2018 10:30:17 Adult health examination 815574551 Z00.01 reviewed .lab in detail and is perfect told pt to continue doing what hes doing as he is in fantastic shape for his age Active or passive immunization 928714571 Z23 Renewal of prescription 344508355 Z76.0 Restless l egs syndrome 10239200 G25.81 [id number] Benjamin Parker [facility] [address] [facility], [place] [address] 09/23/2018 14:59:56 09/23/2018 16:01:16 Acute low back pain 805694840 M54.5 with known chronic intermitte nt back pain and s/p lumbar spinal surgery Spinal erin nosis of lumbar region 24539350 M48.061 Lumbar radiculopathy 128 503226 M54.16 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 1196305613 17570 M53.80 [id number] Benjamin Parker [facility] [address] [facility],[place] [address] 11/10/2018 14:09:03 11/10/2018 15:42:41 Spinal stenosis of lumbar region 90147455 M48.061 severe progressiv e and noted bilat radiculopa thy with loss of motor strength and loss of DTR bilat achilles [id number] Benjamin Parker [facility] [address] [facility], [place] [address] 12/07/2018 13:55:17 12/08/2018 11:09:39 Broad based intervertebral disc protrusion 269793196 M53.[address] Mason [id number] [facility] [address] [place] [address], [place] [address] 10/29/2019 13:54:21 10/29/2019 15:29:41 Acne 96058035 L70.9 will treat on doxy for 10 days [place] [id number] Benjamin Parker [facility] [address] [facility], [facility] [place] [address] 02/29/2020 08:40:50 02/29/2020 16:03:40 Hypercholesterolemia 37396625 E78.00 relates that he is taking the rosuvastat so we will have him stop again for the next 4 weeks Knee pain 09774864 M25.5 69 we will prob need another xray of the knee and then will prob need MRI if needed Myalgia ca used by statin 1162497789 3201436 T46.6X5A will hold rosuvastat Vitamin D deficiency 347 84200 E55.9 will start 1000u daily forn 60 days Pain of mu ltiple joints 72927147 M25.50 [id number] Benjamin Parker [facility] [address] [facility],[place] [address] 04/26/2020 11:49:00 04/26/2020 14:58:49 Carotid bruit 439891887 R09.89 no changes and is quiet Scalp folliculitis 75325 8003 L73.8 noted over his lweft frontal scalp Myalgia ca used by statin 0623313799 0509705 T46.6X5A he is doing ok overall and feels mucn better and is no longer in constant pain he has restarted the statin but i told him if sx return (which they will) he is to stop this Vitamin D deficiency 347 09523 E55.9 will start 1000u daily forn 60 days [id number] Benjamin Parker [facility] [address] [facility],[place] [address] 10/24/2020 11:29:10 10/24/2020 12:18:27 Active or passive immunization 113417541 Z23 Adult heal th examination 487461368 Z00.01 reviewed .lab in detail and is perfect told pt to continue doing what hes doing as he is in fantastic shape for his age but the weight loss is a possible issuehe eats a very strict diet with low fat and low carb and i am going to ask him to increase the carbs Carotid bruit 701785220 R09.89 needs to be done Intermitte nt claudication 33898777 I73.9 given persistanc e of discomfort after exertion we will chk blood flow Renewal of prescription 759294593 Z76.0 [id number] Benjamin Parker [facility] [address] [facility],[place] [address] 11/21/2020 08:29:08 11/21/2020 16:19:33 Carotid atherosclerosis 580025008 I65.29 only 15-49% so we will just wait and follow as necess Irregular heart beat 361 389940 R00.8 detected on doppler [id number] Benjamin Parker [facility] [address] [facility],[place] [address] 12/26/2020 09:08:40 12/26/2020 14:52:40 Ventricular premature beats 84201970 I49.3 he amanda l take magnesium but he is asymptomat ic Restless l egs syndrome 14143358 G25.81 doing well with pramipexol e and gets symptomati c when he forgets [id number] Benjamin Parker [facility] [address] [facility],[place] [address] 10/30/2021 10:15:58 10/30/2021 11:15:54 Active or passive immunization 739623862 Z23 advised due for this years flu shot otherwise UTD Adult heal th examination 901360497 Z00.01 reviewed .lab in detail and is perfect told pt to continue doing what hes doing as he is in fantastic shape for his age but the weight loss is a possible issuehe eats a very strict diet with low fat and low carb and i am going to ask him to increase the carbs discussed lab in detail Intermitte nt claudication 68213358 I73.9 given persistanc e of discomfort after exertion we will chk blood flow Advance care planning 71 1974131 Z71.89 declined health care proxy sheet today Renewal of prescription 525660768 Z76.0 doing great Pain of ri ght knee joint 9495391450 04670 M25.561 also having pain in left mcp jts will try diclof gel [id number] Benjamin Parker [facility] [address] [facility],[place] [address] 12/24/2021 10:27:59 12/24/2021 11:32:02 Acquired trigger finger 4300009 M65.311 will f/u with hand surgeon, with Dr. Jo [id number] Benjamin Parker [facility] [address] [facility], [place] [address] 03/06/2022 13:27:30 03/07/2022 12:01:11 Gastroenteritis 44760450 K52.89 will start on cipro Cough 45932507 R05.1 [place] cough suppressan [place] [id number] [facility] [address] [facility],[place] [address] 05/03/2022 09:14:15 05/03/2022 11:21:28 Intermittent claudication 91270396 I73.9 stableUS venous is negative Acquired t needle polisher finger 3335230 M65.311 will have the patient call [facility] ortho back for a re-evaluat ion of his trigger finger right side Pain of ri ght shoulder joint 2400241412 2038097 M25.511 agreed to starting work-up with XR shoulder Hypercholesterolemia 136 47713 E78.2 will set up with lab work prior to physical [id number] [facility] [address] [facility],[place] [address] 02/05/2023 14:57:15 02/07/2023 09:03:10 Active or passive immunization 338870829 Z23 advised due for this years flu shot otherwise UTD Adult heal th examination 357361090 Z00.00 reviewed .lab in detail and is perfect told pt to continue doing what hes doing as he is in fantastic shape for his age but the weight loss is a possible issuehe eats a very strict diet with low fat and low carb and i am going to ask him to increase the carbs discussed lab in detail Benign pro static hyperplasia [id number] N40.0 no current issues Hypercholesterolemia 136 69720 E78.2 relates that he is taking the rosuvastat so we will have him stop again for the next 4 weeks Intermitte nt claudication 91585295 I73.9 given persistanc e of discomfort after exertion we will chk blood flow Osteoarthr itis of right knee joint [id number] 69215 M17.11 doing ok overall Renewal of prescription 941683664 Z76.0 doing great Restless l egs syndrome 79681577 G25.81 doing well with pramipexol e and gets symptomati c when he forgets or sometimes it doesnt quite cover himhe will try the dose at noon if that doesnt cover him we can increase to bid Erectile dysfunction 860 106538 F52.21 [id number] DO [facility] [address] [facility],[place] [address] [address] 02/19/2023 14:42:29 02/19/2023 16:02:11 Intermittent claudication 80788261 I73.9 given persistanc e of discomfort after exertion we will chk blood flow Hypertensive disorder 38 104389 I10 here we will start him on metoprolol 25 er qd and rech in couple weeks [id number] Benjamin Almanza [facility] [address] [facility], [address] [address] 03/05/2023 08:21:34 03/05/2023 14:07:45 Hypertensive disorder 79576027 I10 here we will start him on metoprolol 25 er qd and rech in couple weeks Erectile dysfunction 860 924505 F52.21 Peripheral vascular disease 787894342 I73.9 noted carotid bruit [id number] Benjamin Almanza [facility] [address] [facility], [address] [address] 04/30/2023 10:00:26 05/02/2023 10:47:36 Hypertensive disorder 77767029 I10 here we will start him on metoprolol 25 er qd and rech in couple weeks Peripheral vascular disease 286152719 I73.9 noted carotid bruit very faint Spinal erin nosis of lumbar region 63187887 M48.061 seems to be stable [id number] Benjamin Almanza [facility] [address] [facility], [place] [address] 06/20/2023 14:47:54 06/20/2023 15:47:18 Hypertensive disorder 54652769 I10 here we will increase the dose to 100 Hypercholesterolemia 136 74044 E78.2 relates that he is taking the rosuvastat so we will have him stop again for the next 4 weeks Peripheral vascular disease 349265723 I73.9 noted carotid bruit very faint [id number] Benjamin Almanza [facility] [address] [facility] [place] [address] 07/01/2023 11:24:01 07/01/2023 13:33:26 Hypertensive disorder 73260156 I10 tolerates 100mg and bps are better see pt home sheet Hypercholesterolemia 136 94687 E78.2 relates that he is taking the rosuvastat so we will have him stop again for the next 4 weeks [id number] Benjamin [facility] [address] [facility] [address] [place] [address] 09/24/2023 10:31:39 09/24/2023 13:42:08 Hypertensive disorder 65778592 I10 tolerates 100mg and bps are better see pt home sheet Intermitte nt claudication 51110321 I73.9 given persistanc e of discomfort after exertion we will chk blood flow Spinal erin nosis of lumbar region 64349606 M48.061 seems to be stable Cervico-oc cipital neuralgia 84345550 M54.81 long discussion re etiol and various treatments will let me know if it comes back Hypercholesterolemia 136 08901 E78.2 relates that he is taking the rosuvastat so we will have him stop again for the next 4 weeks Benign pro static hyperplasia 458313574 N40.0 no current issues [id number] Benjamin [facility] [address] [facility] [address] [facility] [address] 02/27/2024 09:39:15 02/27/2024 13:51:08 Active or passive immunization 521107427 Z23 advised due for this years flu shot otherwise UTD Adult heal th examination 880037786 Z00.00 reviewed .lab in detail and is perfect told pt to continue doing what hes doing as he is in fantastic shape for his age but the weight loss is a possible issuehe eats a very strict diet with low fat and low carb and i am going to ask him to increase the carbs discussed lab in detail he is actually doing well overall except for the right knee Hypertensive disorder 38 354054 I10 tolerates 100mg and bps are better see pt home sheet Peripheral vascular disease 638295532 I73.9 noted carotid bruit very faint Lumbar radiculopathy 128 115137 M54.16 relates that he has been unsteady at times after standing [id number] Benjamin Parker [facility] [address] [facility] [address],[place] [address] 07/07/2024 10:06:07 07/07/2024 10:52:55 Hypertensive disorder 68696199 I10 tolerates 100mg and bps are better see pt home sheet Hypercholesterolemia 136 38942 E78.2 relates that he is taking the rosuvastat so we will have him stop again for the next 4 weeks Peripheral vascular disease 067678810 I73.9 noted carotid bruit very faint Depression screening 171 907817 Z13.31 neg [id number] Benjamin Parker [facility] [address] [facility] [facility] [address] 08/30/2024 09:31:08 08/30/2024 11:34:35 Hypertensive disorder 91583199 I10 reviewed home sheet sbp is 150-160 avg Hypercholesterolemia 136 81539 E78.2 relates that he is taking the rosuvastat so we will have him stop again for the next 4 weeks Depression screening 171 289116 Z13.31 neg [id number] Benjamin Parker [facility] [address] [facility],[place] [address] 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 stable no new issues [id number] Benjamin [facility] [address] [facility],[place] [address] 10/11/2024 14:34:44 10/11/2024 16:27:44 Acute urinary tract infection 955497938 N39.0 6848179 start on abxfu after culture [id number] Benjamin Parker [facility] [address] [facility],[place] [address] 10/25/2024 13:23:38 10/25/2024 14:37:14 Depression screening 064376714 Z13.31 neg Hypertensive disorder 38 843509 I10 reviewed home sheet sbp is 150-160 avg stillbut bp here is excellent AT 122 WE WILL NEED TO USE HOME BPS WITH A GRAIN OF SALT AND THAT HIS HOME READINGS AT 150 ARE ACTUALLY 120 S SYS ON REGULAR BP CUFF HERE AT OFFICE Health Concerns Section Related Observation LastModified by Organization Detai ls LastModified Time None Recorded Concern Status LastModified by Organization Details LastModified Time None Recorded Advance Directives Directive None Recorded Payers Insurance Date Sequence Insurance Name Policy Number Policy Escobar Covered Member ID Escobar Member ID Guarantor Name 04/26/2024 1 [facility] [id number] Geoffrey Ji Growhoski [id number] Geoffrey Ji Growhoski 02/27/2024 2 MEDICARE B-[place]: [facility] [employer] Geoffrey Gaticahoski [id number] Geoffrey Ji Growhoski 02/27/2024 [facility] (MEDICARE REPLACEMENT/A DVANTAGE - PPO) [id number] Geoffrey Ji Growhoski [id number] Geoffrey Ji Growhoski 02/26/2025 1 [employer] - MEDICARE ADVANTAGE PLAN (MEDICARE REPLACEMENT HMO) [id number] Geoffrey Gaticahoski [id number] Geoffrey Ji Growhoski 02/27/2024 1 MEDICARE B-[place]: [facility] [employer] Geoffrey Gaticahoski [id number] Geoffrey Ji Growhoski 02/27/2024 1 [facility] (O) [id number] Geoffrey Ji Growhoski [id number] Geoffrey Ji Growhoski Notes Date Note Type Note Provider Name and Address Organization Details Recorded Time 07/08/19 25 text/htm l Care Management - HypertensionReported by PatientHPIFor self care, patient reportsnot under emotional stress. For severity, patient reportssymptoms are improvinganddoes not interfere with daily activities. For associated symptoms, patient reportsno dizziness,no lightheadedness,no chest pain,no shortness of breath,no palpitations,no edema,no calf muscle cramps,no blurred vision,no confusion,no headaches, andno fatigue. Care Management - HyperlipidemiaReported by PatientHPIFor control, patient reportsusually well controlled,improving, andat goal. For complications, patient reportsno coronary artery disease,no heart attack,no cardiovascular disease,no pancreatitis, andno stroke.ROS as noted in the HPI Benjamin Parker, DO [address] [place], [address], [facility] 07/07/2024 10:46:33 08/31/19 25 text/htm l Care Management - HypertensionReported by PatientHPIFor self care, patient reportsnot under emotional stress. For severity, patient reportssymptoms are improvinganddoes not interfere with daily activities. For associated symptoms, patient reportsno dizziness,no lightheadedness,no chest pain,no shortness of breath,no palpitations,no edema,no calf muscle cramps,no blurred vision,no confusion,no headaches, andno fatigue. Care Management - HyperlipidemiaReported by PatientHPIFor control, patient reportsusually well controlled,improving, andat goal. For complications, patient reportsno coronary artery disease,no heart attack,no cardiovascular disease,no pancreatitis, andno stroke.ROS as noted in the HPI here for rechk with bp and relates Benjamin Parker DO [address] [place], [address], [facility] 08/30/2024 09:55:41 09/28/19 25 text/htm l Care Management - HypertensionReported by PatientIFor self care, patient reportsnot under emotional stress. For severity, patient reportssymptoms are improvinganddoes not interfere with daily activities. For associated symptoms, patient reportsno dizziness,no lightheadedness,no chest pain,no shortness of breath,no palpitations,no edema,no calf muscle cramps,no blurred vision,no confusion,no headaches, andno fatigue.ROS as noted in the HPI home bps are all elevatedtoday here heis we are concerned his machine is no longer accurate Benjamin Parker DO [address] [place], [address], [facility] 09/27/2024 09:43:55 10/12/19 25 text/htm l ROS as noted in the HPI c/o UTI the patient developed UTI symptoms about 3 days after his last fu in office on 09/27/24e patient started with frequency, incomplete voiding, dysuria (painful urination)denies bloodurine dip was positive leuks and nitratesstarting on macrobid and sending out urine for culture pt instructed to call if symptoms persist or he develops fever/chills and flank pain JOSE MARTIN [address] [place], [address], [facility] 10/11/2024 15:13:32 10/26/19 25 text/htm l Care Management - HypertensionReported by PatientHPIFor self care, patient reportsnot under emotional stress. For severity, patient reportssymptoms are improvinganddoes not interfere with daily activities. For associated symptoms, patient reportsno dizziness,no lightheadedness,no chest pain,no shortness of breath,no palpitations,no edema,no calf muscle cramps,no blurred vision,no confusion,no headaches, andno fatigue.ROS as noted in the HPI brought home bp readings still running 150s avg sysbp here excellent but machine is WAY offrelates his wrist monitor was more accurate SO WE WILL USE HOME WRIST MACHINE AND REALIZE HIS READINGS ARE GOING TO BE A LITTLE HIGH FROM SHADI E BUT IN REALITY THETARE OK Benjamin Parker DO [address] [facility], [place], [address], [facility] 10/25/2024 13:54:59
--- OUTSIDE RECORDS SUMMARY | 2025-02-28 07:47 | XMS_ITS | Encounter Summary ---
Author Organization [facility] Address [address] [facility] [address] [place] [address] Phone Care Team Providers Care Foreman/Pile Driving And Erection Name Role Phone AlisiaangelaBenjamin DO Primary Care Provider [phone] Encounter Details Date Type Department Care Team (Late st Contact Info) Description 10/31/2020 Ancillary Orders [facility] [address] [facility] 3rd [place] [address] Raj Escobar DO [address] [facility] [address] [place] [address] [email or web address] PVD (peripheral vascular disease) Social History Tobacco Use Types Packs/Day Years Used Date Smoking Tobacco: Never Smokeless Tobacco: Never Alcohol Use Standard Drinks/Week Comments Yes 1 (1 standard drink = 0.6 oz pur e alcohol) occasional Sex and Gender Information Value Date Recorded Sex Assigned at Not on file Legal Sex Male 10:13 PM EDT Gender Identity Not on file Sexual Orientation Not on file documented as of this encounter Plan of Treatment Not on file documented as of this encounter Results * US Lower Extremity Arteries (ADRIENNE) Physio Complete Unilat (10/31/2020 3:00 PM EDT) Anatomical Region Laterality Modality Ultrasound Narrative 11/02/2020 10:21 AM EDT See scanned document. Procedure Note Benito Heard MD - 11/02/2020 See scanned document. us Raj A Arcoleo DO CV US VASCULAR Final Result documented in this encounter Visit Diagnoses Diagnosis Peripheral vascular disease, unspecified PVD (peripheral vascular disease) Unspecified peripheral vascular disease PVD (peripheral vascular disease) Unspecified peripheral vascular disease documented in this encounter Additional Health Concerns Infection Onset Date Last Indicated Resolved Time CoV-Risk 10/08/2023 10/08/2023 10/19/2023 1:21 AM EDT CoV-Risk 11/05/2023 11/05/2023 11/05/2023 12:1 4 PM EDT COVID-19 11/05/2023 11/05/2023 11/26/2023 1:24 AM EDT documented as of this encounter Care Teams Foreman/Pile Driving And Erection Relationship Specialty Start Date End Date Benjamin Hurtado DO [email or web address] PCP - General 12/17/16 documented as of this encounter Additional Source Comments The information contained in this document represents components of the legal health record. It is not the complete legal health record.[facility]
--- OUTSIDE RECORDS SUMMARY | 2025-02-28 07:48 | XMS_ITS | Encounter Summary ---
Author Organization [facility] Address [address] [address] Phone Care Team Providers Care Shoe Sprayer Name Role Phone Benjamin Hurtado DO Primary Care Provider [phone] Encounter Details Date Type Department Care Team (Late st Contact Info) Description 11/22/2020 Transcribe Orders Virtual Department [address] [place] [address] Benjamin Hurtado DO [address] [facility] [place] [address] [email or web address] Irregular heart beat (Primary Dx) Social History Tobacco Use Types [...] on file documented as of this encounter Visit Diagnoses Diagnosis Irregular heart beat- Primary Unspecified cardiac dysrhythmia documented in this encounter Additional Health Concerns Infection Onset Date Last Indicated Resolved Time CoV-Risk 10/08/2023 10/08/2023 10/19/2023 1:21 AM EDT CoV-Risk 11/05/2023 11/05/2023 11/05/2023 12:1 4 PM EDT COVID-19 11/05/2023 11/05/2023 11/26/2023 1:24 AM EDT documented as of this encounter Care Teams Shoe Sprayer Relationship Specialty Start Date End Date Benjamin Hurtado DO [email or web address] PCP - General 12/17/16 documented as of this encounter Additional Source Comments The information contained in this document represents components of the legal health record. It is not the complete legal health record.[facility]
--- OUTSIDE RECORDS SUMMARY | 2025-02-28 07:48 | XMS_ITS | Encounter Summary ---
Author Organization [facility] Address [address] [address] Phone Care Team Providers Care Cosmetology Teacher Name Role Phone Benjamin Hurtado DO Primary Care Provider [phone] Encounter Details Date Type Department Care Team (Late st Contact Info) Description 10/24/2020 Transcribe Orders Virtual Department [address] [place] [address] Benjamin Hurtado DO [address] [place] [address] [email or web address] Peripheral vascular disease, unspecified (Primary Dx) Social History Tobacco Use Types [...] encounter Results * US Lower Extremity Arteries Duplex Complete (Bilateral) (10/31/2020 3:00 PM EDT) Anatomical Region Laterality Modality Ultrasound Narrative 11/02/2020 10:21 AM EDT See scanned document. Procedure Note Benito Heard MD - 11/02/2020 See scanned document. us Benjamin Hurtado DO CV US VASCULAR Final Result documented in this encounter Visit Diagnoses Diagnosis Peripheral vascular disease, unspecified- Primary Peripheral vascular disease, unspecified PVD (peripheral vascular disease) Unspecified peripheral vascular disease documented in this encounter Additional Health Concerns Infection Onset Date Last Indicated Resolved Time CoV-Risk 10/08/2023 10/08/2023 10/19/2023 1:21 AM EDT CoV-Risk 11/05/2023 11/05/2023 11/05/2023 12:1 4 PM EDT COVID-19 11/05/2023 11/05/2023 11/26/2023 1:24 AM EDT documented as of this encounter Care Teams Cosmetology Teacher Relationship Specialty Start Date End Date Benjamin Hurtado DO [email or web address] PCP - General 12/17/16 documented as of this encounter Additional Source Comments The information contained in this document represents components of the legal health record. It is not the complete legal health record.[facility]
--- OUTSIDE RECORDS SUMMARY | 2025-02-28 07:48 | XMS_ITS | Encounter Summary ---
Author Organization [facility] Address [address] [facility] [address] [place] [address] Phone Care Team Providers Care Pound Attendant Name Role Phone AlisiaBenjamin miller Primary Care Provider [phone] Encounter Details Date Type Department Care Team (Latest Contact Info) Description 05/03/2022 Transcribe Orders Virtual Department [address] [place] [address] Evelyne Hutchins PA [address] [place] [address] [place] [address] Right shoulder pain, unspecified chronicity (Primary Dx) Social History Tobacco Use Types [...] documented as of this encounter Results * XR SHOULDER 2 VIEWS (RIGHT) (05/03/2022 2:12 PM EST) Anatomical Region Laterality Modality Shoulder Right Computed Radiogr aphy 05/04/2022 1:19 PM EST Impressions 05/04/2022 1:21 PM EST No acute osseous abnormality. Moderate glenohumeral arthritis. Narrative 05/04/2022 1:21 PM EST XR SHOULDER 2 OR MORE VIEWS (RIGHT) COMPARISON: None FINDINGS: No acute fracture or dislocation. Soft tissue anchors in the right humerus from presumed prior rotator cuff repair. Moderate joint space narrowing with subchondral sclerosis and bony proliferative change at the glenohumeral joint. Widening of the acromioclavicular joint suggests possible distal clavicular excision at the time of the rotator cuff repair. Procedure Note Ion Hassan MD - 05/04/2022 XR SHOULDER 2 OR MORE VIEWS (RIGHT) COMPARISON: None FINDINGS: No acute fracture or dislocation. Soft tissue anchors in the right humerusfrom presumed prior rotator cuff repair. Moderate joint space narrowingwith subchondral sclerosis and bony proliferative change at theglenohumeral joint. Widening of the acromioclavicular joint suggestspossible distal clavicular excision at the time of the rotator cuffrepair. IMPRESSION: No acute osseous abnormality. Moderate glenohumeral arthritis. Evelyne GARCIA IMG XR UPPER EXTREMITY Radha l Result documented in this encounter Visit Diagnoses Diagnosis Right shoulder pain, unspecified chronicity- Primary Right shoulder pain, unspecified chronicity documented in this encounter Additional Health Concerns Infection Onset Date Last Indicated Resolved Time CoV-Risk 10/08/2023 10/08/2023 10/19/2023 1:21 AM EDT CoV-Risk 11/05/2023 11/05/2023 11/05/2023 12:1 4 PM EDT COVID-19 11/05/2023 11/05/2023 11/26/2023 1:24 AM EDT documented as of this encounter Care Teams Pound Attendant Relationship Specialty Start Date End Date Benjamin Hurtado DO [email or web address] PCP - General 12/17/16 documented as of this encounter Additional Source Comments The information contained in this document represents components of the legal health record. It is not the complete legal health record.[facility]
--- OUTSIDE RECORDS SUMMARY | 2025-02-28 07:48 | XMS_ITS | Encounter Summary ---
Author Organization [facility] Address [address] [address] Phone Care Team Providers Care Print Designer Name Role Phone Benjamin Hurtado DO Primary Care Provider [phone] Encounter Details Date Type Department Care Team (Late st Contact Info) Description 11/10/2018 Procedure Pass [facility], [facility] [address] [place] [address] Social History Tobacco Use Types Packs/Day Years [...] documented as of this encounter Visit Diagnoses Not on filedocumented in this encounter Additional Health Concerns Infection Onset Date Last Indicated Resolved Time CoV-Risk 10/08/2023 10/08/2023 10/19/2023 1:21 AM EDT CoV-Risk 11/05/2023 11/05/2023 11/05/2023 12:1 4 PM EDT COVID-19 11/05/2023 11/05/2023 11/26/2023 1:24 AM EDT documented as of this encounter Care Teams Print Designer Relationship Specialty Start Date End Date Benjamin Hurtado DO PCP - General 12/17/16 documented as of this encounter Additional Source Comments The information contained in this document represents components of the legal health record. It is not the complete legal health record.[facility]
--- OUTSIDE RECORDS SUMMARY | 2025-02-28 07:48 | XMS_ITS | Encounter Summary ---
Author Organization [facility] Address [address] [facility] [address] [place] [address] Phone Care Team Providers Care Entrepreneur Name Role Phone Benjamin Hurtado DO Primary Care Provider [phone] Reason for Referral * MRI/CAT Scan - Closed Specialty Diagnoses / Procedures Referred By Contthao t Referred To Contact Radiology Diagnoses Spinal stenosis, lumbar region without neurogenic claudication Procedures MRI Lumbar Spine Benjamin Hurtado DO Phone: tel: fax: mailto:[email or web address] Referral ID Status Reason Start Date Expiration Date Visits Re quested Visits Authorized [id number] Closed 11/10/2018 11/10/2019 1 1 Encounter Details Date Type Department Care Team (Late st Contact Info) Description 11/10/2018 Transcribe Orders Virtual Department [address] [place] [address] Benjamin Hurtado DO [address] [place] [address] [email or web address] Spinal stenosis, lumbar region without neurogenic claudication (Primary Dx) Social History Tobacco Use Types [...] documented as of this encounter Results * MRI LUMBAR SPINE (BONE) WITHOUT CONTRAST (11/23/2018 1:33 PM EDT) Anatomical Region Laterality Modality L-spine Magnetic Resonan ce 11/23/2018 1:47 PM EDT Impressions 11/23/2018 2:00 PM EDT Small broad-based disc protrusions at L2-3 and L4-5 which have progressed since 2015 leading to increasing central canal stenosis. Grossly stable multilevel neural foraminal narrowing, as above. POS - [id number] Narrative 11/23/2018 2:00 PM EDT TECHNIQUE: Exam performed on a 1.5 Rhonda high-field MRI scanner. Sagittal T1, T2 and STIR, axial T1 and T2 sequences were obtained. FINDINGS: Comparison is made with the prior MR of 06/24/2015 and lumbar radiographs of 11/11/2018. On the sagittal sequences no focal disc protrusion or central canal stenosis have developed at the T11-12 or T12-L1 levels. L1-2: There is chronic mild disc bulge and bilateral recess stenosis due to facet osteoarthropathy and ligamentum flavum hypertrophy. No focal disc protrusion, high-grade central canal stenosis, or significant neural foraminal compromise present. L2-L3: There has been interval progression of the broad-based disc bulge which now appears to reflect disc protrusion, leading to progressive central canal stenosis with chronic bilateral recess stenosis due to facet osteoarthropathy and mild ligamentum flavum hypertrophy also progressed slightly in the interim. There is bilateral neural foraminal narrowing due to peripheral disc bulge but without overt mass effect upon the exiting L2 nerve roots. L3-L4: Stable minimal disc bulge without acute disc protrusion or neural foraminal narrowing. No high-grade central canal stenosis is developed. There is chronic advanced degenerative facet arthropathy. Stable bilateral neural foraminal narrowing and borderline mass effect upon the exiting nerve roots. L4-L5: There has been progression of the chronic disc bulge which now seems to represent a small broad-based disc protrusion, leading to slightly progressive central canal stenosis. There is chronic bilateral neural foraminal narrowing due to vertebral body endplate spurring and facet osteoarthropathy causing stable mass effect upon the exiting left L4 nerve root and borderline mass effect upon the right L4 nerve. Severe advanced degenerative facet arthropathy appear stable. L5-S1: There is a grossly stable broad-based disc bulge and minimal grade 1 retrolisthesis of the L5 vertebral body without central canal stenosis or acute disc protrusion. There is chronic bilateral neural foraminal narrowing, grossly stable with apparent mass effect upon the exiting L5 nerve roots unchanged. No vertebral body compression deformity apparent. Minimal reactive sub-endplate marrow edema at L3. Visualized portions of the tip of the conus are unremarkable. No paraspinal soft tissue mass apparent. Procedure Note Anais Montero MD - 11/23/2018 TECHNIQUE: Exam performed on a 1.5 Rhonda high-field MRI scanner. SagittalT1, T2 and STIR, axial T1 and T2 sequences were obtained. FINDINGS: Comparison is made with the prior MR of 06/24/2015 and lumbar radiographsof 11/11/2018. On the sagittal sequences no focal disc protrusion or central canalstenosis have developed at the T11-12 or T12-L1 levels. L1-2: There is chronic mild disc bulge and bilateral recess stenosis dueto facet osteoarthropathy and ligamentum flavum hypertrophy. No focaldisc protrusion, high-grade central canal stenosis, or significant neuralforaminal compromise present. L2-L3: There has been interval progression of the broad-based disc bulgewhich now appears to reflect disc protrusion, leading to progressivecentral canal stenosis with chronic bilateral recess stenosis due to facetosteoarthropathy and mild ligamentum flavum hypertrophy also progressedslightly in the interim. There is bilateral neural foraminal narrowingdue to peripheral disc bulge but without overt mass effect upon theexiting L2 nerve roots. L3-L4: Stable minimal disc bulge without acute disc protrusion or neuralforaminal narrowing. No high-grade central canal stenosis is developed.There is chronic advanced degenerative facet arthropathy. Stablebilateral neural foraminal narrowing and borderline mass effect upon theexiting nerve roots. L4-L5: There has been progression of the chronic disc bulge which nowseems to represent a small broad-based disc protrusion, leading toslightly progressive central canal stenosis. There is chronic bilateralneural foraminal narrowing due to vertebral body endplate spurring andfacet osteoarthropathy causing stable mass effect upon the exiting left [id number] root and borderline mass effect upon the right L4 nerve. Severeadvanced degenerative facet arthropathy appear stable. L5-S1: There is a grossly stable broad-based disc bulge and minimal grade1 retrolisthesis of the L5 vertebral body without central canal stenosisor acute disc protrusion. There is chronic bilateral neural foraminalnarrowing, grossly stable with apparent mass effect upon the exiting [id number] roots unchanged. No vertebral body compression deformity apparent. Minimal reactivesub-endplate marrow edema at L3. Visualized portions of the tip of theconus are unremarkable. No paraspinal soft tissue mass apparent. IMPRESSION: Small broad-based disc protrusions at L2-3 and L4-5 which have progressedsince 2015 leading to increasing central canal stenosis. Grossly stablemultilevel neural foraminal narrowing, as above. POS - [id number] us Benjamin A Bigda DO IMG MR XSPECIALTY Final Result * XR LUMBOSACRAL SPINE 4 OR MORE VIEWS (11/11/2018 12:07 PM EDT) Anatomical Region Laterality Modality L-spine Radiographic Meagan ging 11/11/2018 1:26 PM EDT Impressions 11/11/2018 1:30 PM EDT Impression: No evidence of instability Severe facet arthropathy throughout the lumbosacral spine The patient is unable to flex the spine whatsoever POS: [id number] Narrative 11/11/2018 1:30 PM EDT Comparison: MRI of the lumbosacral spine dated 06/24/2015 4 views of the lumbar spine are obtained. These views include neutral and lateral extension flexion views and an AP view. Findings: Severe facet arthropathy is seen throughout the lumbar spine and at the lumbosacral junction. This is progressively worse as one proceeds inferiorly. Although spinal stenosis can usually not be diagnosed on standard radiographs it must be present in this patient this has been documented on prior MRI. The patient is not able to flex the spine at all and there is only minimal extension. There is no evidence of instability. The L5-S1 disc space is obliterated Procedure Note Kalli Mcgowan MD - 11/11/2018 Comparison: MRI of the lumbosacral spine dated 06/24/2015 4 views of the lumbar spine are obtained. These views include neutral andlateral extension flexion views and an AP view. Findings: Severe facet arthropathy is seen throughout the lumbar spine andat the lumbosacral junction. This is progressively worse as one proceedsinferiorly. Although spinal stenosis can usually not be diagnosed onstandard radiographs it must be present in this patient this has beendocumented on prior MRI. The patient is not able to flex the spine at all and there is only minimalextension. There is no evidence of instability. The L5-S1 disc space is obliterated IMPRESSION: Impression: No evidence of instability Severe facet arthropathy throughout the lumbosacral spine The patient is unable to flex the spine whatsoever POS: [id number] Benjamin Hurtado DO IMG XR SPINE Final Result documented in this encounter Visit Diagnoses Diagnosis Spinal stenosis, lumbar region without neurogenic claudication- Primary Spinal stenosis, lumbar region without neurogenic claudication Spinal stenosis, lumbar region without neurogenic claudication documented in this encounter Additional Health Concerns Infection Onset Date Last Indicated Resolved Time CoV-Risk 10/08/2023 10/08/2023 10/19/2023 1:21 AM EDT CoV-Risk 11/05/2023 11/05/2023 11/05/2023 12:1 4 PM EDT COVID-19 11/05/2023 11/05/2023 11/26/2023 1:24 AM EDT documented as of this encounter Care Teams Entrepreneur Relationship Specialty Start Date End Date Benjamin Hurtado DO [email or web address] PCP - General 12/17/16 documented as of this encounter Additional Source Comments The information contained in this document represents components of the legal health record. It is not the complete legal health record.[facility]
--- OUTSIDE RECORDS SUMMARY | 2025-02-28 07:48 | XMS_ITS | Encounter Summary ---
Author Organization [facility] Address [address] [facility] [address] [place] [phone] Phone Care Team Providers Care Solar Sales Energy Advisor Name Role Phone Benjamin Hurtado DO Primary Care Provider [phone] Encounter Details Date Type Department Care Team (Late st Contact Info) Description 10/07/2017 Procedure Pass [facility] Endoscopy Admitting Dept Virtual Department [address] [place] [address] Social History Tobacco Use Types Packs/Day Years [...] documented as of this encounter Care Teams Solar Sales Energy Advisor Relationship Specialty Start Date End Date Benjamin Hurtado DO PCP - General 12/17/16 documented as of this encounter Additional Source Comments The information contained in this document represents components of the legal health record. It is not the complete legal health record.[facility]
--- OUTSIDE RECORDS SUMMARY | 2025-02-28 07:48 | XMS_ITS | Encounter Summary ---
Author Organization [facility] Address [address] [address] Phone Care Team Providers Care Chemistry Tutor Name Role Phone Benjamin Hurtado DO Primary Care Provider [phone] Encounter Details Date Type Department Care Team (Late st Contact Info) Description 11/29/2020 Procedure Pass [facility] [address] [place] [address] Social History Tobacco Use Types Packs/Day Years [...] documented as of this encounter Care Teams Chemistry Tutor Relationship Specialty Start Date End Date Benjamin Hurtado DO PCP - General 12/17/16 documented as of this encounter Additional Source Comments The information contained in this document represents components of the legal health record. It is not the complete legal health record.[facility]
--- OUTSIDE RECORDS SUMMARY | 2025-02-28 07:48 | XMS_ITS | Encounter Summary ---
Author Organization [facility] Address [address] [address] Phone Care Team Providers Care Used Building Materials Yard Worker Name Role Phone Benjamin Hurtado DO Primary Care Provider [phone] Encounter Details Date Type Department Care Team (Late st Contact Info) Description 08/10/[address] [facility] [address] [address] Benjamin Hurtado DO [address] [place] [address] Pure hypercholesterolemia (Primary Dx); Benign prostatic hyperplasia, unspecified whether lower urinary tract symptoms present; Essential hypertension, malignant Social History Tobacco Use Types Packs/Day Years [...] encounter Results * (ABNORMAL) Comprehensive metabolic panel (08/10/2018 7:32 AM EDT) SODIUM 142 133 - 146 mmol/L [facility] POTASSIUM 4.5 3.3 - 5.1 mmol/L [facility] CHLORIDE 104 96 - 108 mmol/L [facility] CO2 28 21 - 35 mmol/L [facility] BUN 20(H) 6 - 19 mg/dL [facility] CREATININE 0.90 0.5 - 1.5 mg/dL [facility] GLUCOSE 103(H) 70 - 99 mg/dL [facility] ALBUMIN 3.7(L) 3.9 - 4.8 g/dL [facility] TOTAL PROTEIN 6.7 6.5 - 8.0 g/dL [facility] CALCIUM 9.2 8.4 - 10.3 mg/dL [facility] ALKALINE PHOSPHATASE 82 39 - 117 U/L [facility] TOTAL BILIRUBIN 0.4 0.0 - 1.2 mg/dL [facility] AST 23 0 - 37 U/L [facility] ALT 14 0 - 40 U/L [facility] GLOBULIN 3.0 1 - 4.8 g/dL [facility] EGFR 80 >59 mL/min/1.7 3m2 [facility] Comment:If patient is black, multiply result by 1.159. Estimated glomerular filtration rate calculated using the CKD-EPI equation. ANION GAP 15 10 - 20 mmol/L [facility] Blood 08/10/2018 7:32 AM EDT 08/10/2018 8:13 AM EDT us Benjamin A Bigda DO LAB BLOOD BKR ORDERABLES Final R esult Performing Organization Address City/[facility]/ZIP Co de Phone Number [address] [address] * (ABNORMAL) PSA (screening) (08/10/2018 7:32 AM EDT) PSA 4.90(H) 0 - 4.00 ng/mL [facility] Blood 08/10/2018 7:32 AM EDT 08/10/2018 8:13 AM EDT us Benjamin A Bigda DO LAB BLOOD BKR ORDERABLES Final R esult Performing Organization Address City/[facility]/ZIP Co de Phone Number [address] [address] * (ABNORMAL) Lipid panel (08/10/2018 7:32 AM EDT) HDL 61 mg/dL [facility] Comment: Interpretation <40 mg/dL: Low HDL cholesterol (major risk factor for CHD) Greater than or equal to 60 mg/dL: High HDL cholesterol ( negative risk factor for CHD) HDL - cholesterol is affected by a number of factors, e.g. smoking, excerise, hormones, sex and age. CHOLESTEROL 151 0 - 240 mg/dL [facility] TRIGLYCERIDES 85 30 - 160 mg/dL [facility] LDL 73 50 - 129 mg/dL [facility] Comment: LDL levels in terms of risk for coronary heart disease: <100 mg/dL: Optimal 100-129 mg/dL: Near or above optimal 130-159 mg/dL: Borderline high 160-189 mg/dL: High >190 mg/dL: Very High CARDIAC RISK RATIO 2.5(L) 3.4 - 5.0 C [facility] Blood 08/10/2018 7:32 AM EDT 08/10/2018 8:13 AM EDT us Benjamin Hurtado DO LAB BLOOD BKR ORDERABLES Final R esult [address] [address] documented in this encounter Visit Diagnoses Diagnosis Pure hypercholesterolemia- Primary Benign prostatic hyperplasia, unspecified whether lower urinary tract symptoms present Essential hypertension, malignant documented in this encounter Additional Health Concerns Infection Onset Date Last Indicated Resolved Time CoV-Risk 10/08/2023 10/08/2023 10/19/2023 1:21 AM EDT CoV-Risk 11/05/2023 11/05/2023 11/05/2023 12:1 4 PM EDT COVID-19 11/05/2023 11/05/2023 11/26/2023 1:24 AM EDT documented as of this encounter Care Teams Used Building Materials Yard Worker Relationship Specialty Start Date End Date Benjamin Hurtado DO [email or web address] PCP - General 12/17/16 documented as of this encounter Additional Source Comments The information contained in this document represents components of the legal health record. It is not the complete legal health record.[facility]
[2025-02-28 14:03] LABS: MANUAL DIFF FLAG NO
[2025-02-28 14:22] LABS: Hematocrit 42.4 % (42.0-52.0); Hemoglobin 14.3 g/dl (14.0-18.0); Imm Gran Abs Auto 0.00 X10*3/uL (0.00-0.03); Imm Gran Pct Auto 0.0 % (0.0-0.4); Lymphocytes Absolute Auto 2.1 X10*3/uL (1.2-4.9); Mean Corpuscular HGB Conc 33.7 g/dl (31.0-36.0); Mean Corpuscular Hemoglobin 30.6 pg (27.0-33.0); Mean Corpuscular Volume 90.8 fL (80.0-98.0); NRBC Abs Auto 0.000 X10*3/uL (0.0-0.012); NRBC Pct Auto 0.0 /100WBC (0.0-0.2); Platelet Count 221 X10*3/uL (160-400); Red Blood Count 4.67 X10*6/uL (4.60-5.80); White Blood Count 5.0 X10*3/uL (4.8-10.8)
[2025-02-28 14:32] LABS: Hemoglobin A1C 145.7624 umol/L
[2025-02-28 14:46] LABS: Alanine Aminotransferase 16 U/L (0-40); Albumin Level 3.9 g/dL (3.5-5.0); Alkaline Phosphatase 81 U/L (39-117); Anion Gap 10 (12-20); Aspartate Amino Transferase 29 U/L (5-37); Blood Urea Nitrogen 28 mg/dL (9-16); Calcium 9.2 mg/dL (8.4-10.2); Carbon Dioxide 28 mmol/L (22-29); Chloride 108 mmol/L (96-108); Cholesterol 285 mg/dL (<200); Estimated Glomerular Filt Rate > 60; HDL Cholesterol 50 mg/dL (>40); Potassium 4.3 mmol/L (3.3-5.1); Sodium 142 mmol/L (135-145); Total Protein 6.6 g/dL (6.5-8.0); Triglycerides 149 mg/dL (<150)
== END 2025-02-28 07:46 | disposition home or self-care (01) ==
LOC: HO.MANLDS 07:45
PROVIDERS: Visit Provider Internal Medicine
DX: E78.2 Mixed hyperlipidemia (principal); Z13.1 Encounter for screening for diabetes mellitus
CPT/HCPCS: 36415; 80053; 80061; 83036; 85025

== ENCOUNTER 2025-03-01 13:34 | Outpatient (REF) | payer MEDICARE, SELFPAY ==
--- NOTE | ~2025-03-01 | XR_ITS ---
EXAMINATION: XR RIBS 3 VIEWS MINIMUM WITH CHEST LEFT HISTORY: LEFT SIDED RIB PAIN, CHEST PAIN COMPARISON: There are no prior studies available for comparison. FINDINGS: A single PA view of the chest and 3 views of the left ribs are submitted. The lungs are expanded and clear. There is no pleural effusion, pneumothorax, or pulmonary vascular congestion. The heart is normal in size. The left ribs are intact. No fracture is seen. XR/XR ribs LT min 3V w CXR1V IMPRESSION: No evidence of fracture of the left ribs. The lungs are clear. Electronically signed by: Neel Bowers MD 03/01/2025 03:22 PM [facility]
--- OUTSIDE RECORDS SUMMARY | 2025-03-01 17:28 | XMS_ITS | Encounter Summary ---
Author Organization [facility] Address [address] [address] Phone Care Team Providers Care Data Management Associate Name Role Phone Benjamin Hurtado DO Primary Care Provider [phone] Encounter Details Date Type Department Care Team (Late st Contact Info) Description 11/10/2018 Procedure Pass [facility] [address] [place] [address] Social History Tobacco Use Types Packs/Day Years [...] documented as of this encounter Care Teams Data Management Associate Relationship Specialty Start Date End Date Benjamin Hurtado DO PCP - General 12/17/16 documented as of this encounter Additional Source Comments The information contained in this document represents components of the legal health record. It is not the complete legal health record.[facility]
--- OUTSIDE RECORDS SUMMARY | 2025-03-01 17:28 | XMS_ITS | Continuity of Care Document ---
Author Organization [place] - [facility], [facility] Address [address] [facility] [place] [address] [place] [address] Assessment No assessment recorded. Plan of Treatment Reminders Order Date Submit Date Provider Last Modified By Organization Details Last Modified Time Details Appointments MEDICARE ANNUAL WELLNESS 2024 10:30A M DR PARKER Not available Not available Not available FOLLOW UP 15 2025 09:30A M DR PARKER Not available Not available Not available Lab None recorded. Referral None recorded. Procedures None recorded. Surgeries None recorded. Imaging XR, ribs, unilatera l, w/ PA chest [address] (Imaging), [address] [place] [address], [id number], 03/01/2025 11:51:42 XR, chest, 2 view [address] (Imaging), [address] [place] [address], [id number], 03/01/2025 11:51:42 Medication Orders lisinopri l 20 mg tablet 2024 [facility][id number], [address] [place], [place], [id number], 03/01/2025 11:03:42 metoprolo l succinate ER 100 mg tablet,ex tended release 24 hr 2024 025 [facility] #[id number], [address] [place], [place], [id number], 03/01/2025 11:03:49 Patient TargetsNo targets recorded. Patient InstructionsNo instructions recorded. Reason for Referral None Reported. Results Created Date Observation Date Name Description Value Unit Range Abnormal Flag Note LastModifiedBy Organization Detail LastModifiedTime 03/01/20 25 03/01/2025 evelioi ng/mohan pattyome tic resul t No observ ation record ed. [facility] (Medical Records) [address] [place], [address], 03/01/2025 16:10:13 Result Notes None recorded. 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 28459889823 4106 Active 2017 Not Available [facility] 12:37:01 Divertic ular disease 484627581 Active 2017 Not Available [facility] 12:37:02 Benign prostati c hyperpla beth 406334039 Active 2017 Not Available [facility] 12:37:02 Spinal stenosis of lumbar region 94092480 Active 2017 Not Available [facility] 12:37:02 Lumbar radiculo connor 701338571 Active 2017 Not Available [facility] 1 12:37:01 Lumbar spondylo sis 503862219 Active 2017 Not Available [facility] 12:37:02 Carotid bruit 221417547 Active 2017 Not Available [facility] 12:37:01 Decompre ssion of lumbar spine Completed 201804/26/2018 Benjamin Parker DO [address] [place], [address], [facility] 1 12:47:08 Lumbar discogen ic pain 962297085 Active 2018 Not Available [facility] 1 12:37:02 Restless legs syndrome 41057916 Active 2019 Not Available [facility] 1 12:37:01 Eczema 56319350 Active [address] [facility] 1 12:37:02 Ventricu lar prematur e beats 71476717 Active 2020 Benjamin Parker, DO [address] [place] [address], [address], [facility] 1 09:38:05 Pain of right knee joint 53585692656 4100 Active 2021 Benjamin Parker, DO [address] [place] [address], [address], [facility] 2 10:58:23 Osteoart hritis of right knee joint 14483047792 9100 Active 2021 Benjamin Parker, DO [address] [place] [address], [address], [facility] 2 16:44:26 Acquired trigger finger 2000122 Active 2021 JOSE MARTIN [address] [place] [address], [address], [facility] 2 11:01:31 Gastroen teritis 26070672 Active 2022 JOSE MARTIN [address] [place] [address], [address], [facility] 3 14:58:17 Cough 12982544 Active 2022 JOSE MARTIN [address] [place] [address], [address], [facility] 3 14:59:16 Intermit tent claudica tion 37965362 Active 2022 JOSE MARTIN [address] [place] [address], [address], [facility] 3 09:27:00 Pain of right shoulder joint 27491874415 600845 Active 2022 JOSE MARTIN [address] [place] [address] [place], [address], [facility] 3 09:27:58 Acute urinary tract infectio n 906908543 Active 2022 JOSE MARTIN [address] [place] [address], [address], [facility] 5 15:06:55 Erectile dysfunct ion 124590091 Active 2022 Benjamin Parker DO [address] [place] [address], [address], [facility] 3 15:58:08 Hyperten sive disorder 52768567 Active 2022 Benjamin Parker DO [address] [place] [address], [address], [facility] 3 15:11:04 Peripher al vascular disease 973534469 Active 2023 Benjamin Parker DO [address] [place] [address], [address], [facility] 4 12:28:51 Cervico- occipita l neuralgi a 02853245 Active 2023 Benjamin Parker DO [address] [place] [address], [address], [facility] 4 11:01:06 Atypical chest pain 694881592 Active 2024 Benjamin Parker DO [address] [place] [address], [address], [facility] 5 11:05:03 Rib pain 352731805 Active 2024 Benjamin Parker DO [address] [place] [address], [address], [facility] 5 11:07:11 Problem Notes None recorded. Procedures Surgical History Date Name Laterality Status Provider Name and Address Organization Details Recorded Time 8 Colonoscopy completed Yenifer Chawla [facility] 10/08/2017 10:01:09 Imaging Results None recorded. Procedure Notes None recorded. Medical Equipment None Reported. Allergies Allergen ID Allergen Name Allergen Category Reaction Reaction Severity Criticality Documentation Date Start Date Code Code System Note Provider Name and Address Organization Details Recorded Time 397 Product containin g 3-hydroxy -3-methyl glutaryl- coenzyme A reductase inhibitor (product) medicatio n myalgias (muscle pain) Not available Not available 05/07/2017 22150 009 SNOMED DARLENE Motley [facility] 8 11:36:44 398 Substance with sulfonami de structure and antibacte rial mechanism of action (substanc e) medicatio n Not available Not available Not available 05/07/2017 10121 8003 SNOMED DARLENE [facility] 8 11:36:48 Medications Name Sig [...] Not Available Not Available Vitals Date Recorded Systolic And Diastolic Provider Name and Address Organization Details Last Updated DateTime 03/01/2025 128/62 mm[Hg] Mralon Kurtz [address] [facility], [place], [address], [place] - [facility] 03/01/2025 11:02:12 Date Recorded Body height Body mass index (BMI) Body weight Heart rate Oxygen saturation Provider Name and Address Organization Details Last Updated DateTime 03/01/2025 165.1 cm 24.2 kg/m2 62617.61 g 50 /min 95 % Ann Zamarripa [place] [facility] 10:33:12 Social History Question Answer Notes LastModified by Organizat ion Details LastModified Time Tobacco Smoking Status Never Smoker Not Available [facility] 01/04/2020 03:36:24 What Was The Date Of Your Most Recent Tobacco Screening? 03/01/2025 [email or web address] Information not available 03/01/2025 Sex: Unknown Functional Status Question Answer Note LastModified by Organization D etails LastModified Time Do you or have you ever used any other forms of tobacco or nicotine? No [email or web address] Information not available 02/19/2023 Mental Status None recorded. Family History Nothing Reported. Medical History No medical history recorded. Immunizations Vaccine Type Date Status Note Provider Nam e and Address Organization Details Recorded Time COVID-19, mRNA, LNP-S, PF, 30 mcg/0.3 mL dose 04/07/[address] [facility] 09/26/2022 09:41:57 COVID-19, mRNA, LNP-S, PF, 30 mcg/0.3 mL dose 04/27/19 21 completed Not Available [facility] 09/26/2022 09:41:57 Influenza, split virus, quadrivalent, preservative 11/22/19 21 completed Not Available [facility] 09/26/2022 09:41:57 Influenza, adjuvanted, quadrivalent, PF 11/25/19 20 completed Not Available [facility] 09/26/2022 09:41:57 COVID-19, mRNA, LNP-S, PF, 30 mcg/0.3 mL dose 12/14/19 21 completed Not Available [facility] 09/26/2022 09:41:57 COVID-19, mRNA, LNP-S, PF, 30 mcg/0.3 mL dose 11/16/19 22 completed Not Available [facility] 09/26/2022 09:41:57 influenza, unspecified formulation 11/16/19 22 completed Not Available [facility] 09/26/2022 09:41:57 pneumococcal, unspecified formulation 01/24/20 23 completed Milagros adams [facility] 02/05/2023 15:05:31 influenza nasal, unspecified formulation 11/23/19 23 completed Milagros adams [facility] 02/05/2023 15:06:01 tetanus toxoid, unspecified formulation 01/17/20 23 completed Milagros adams [facility] 02/05/2023 15:06:40 influenza, unspecified formulation 12/02/19 25 completed Benjamin Parker DO [address] [place], [address], [facility] 03/01/2025 11:01:29 Tdap 07/23/[address] [facility] 09/26/2022 09:41:57 pneumococcal polysaccharide PPV23 11/02/[address] [facility] 09/26/2022 09:41:57 Pneumococcal conjugate PCV 13 01/03/[address] [facility] 09/26/2022 09:41:57 zoster live 10/25/[address] [facility] 09/26/2022 09:41:57 zoster live 01/21/[address] [facility] 09/26/2022 09:41:57 Influenza, split virus, quadrivalent, preservative 11/25/[address] [facility] 09/26/2022 09:41:57 Influenza, split virus, quadrivalent, preservative 10/25/[address] [facility] 09/26/2022 09:41:57 Past Encounters Encounter ID Performer Location Encounter Start Date Encounter Closed Date Diagnosis/Indication Diagnosis SNOMED-CT Code Diagnosis ICD10 Code Diagnosis IMO Codes Diagnosis Note [id number] Benjamin Parker DO [facility] [address] [facility] [place] [address] 03/01/2025 10:21:45 03/01/2025 11:51:42 Depression screening 675791711 Z13.31 neg Hypertensive disorder 38 308282 I10 reviewed home sheet sbp is 120-130avg stillbut bp here is excellent AT 122 WE WILL NEED TO USE HOME BPS WITH A GRAIN OF SALT AND THAT HIS HOME READINGS AT 150 ARE ACTUALLY 120 S SYS ON REGULAR BP CUFF HERE AT OFFICE History an d physical examination, annual for health maintenance 28926676 Z00.00 54148286 again doing very well reviewed .lab in detail and is perfect [...] well overall except for the right knee Atypical chest pain 1025 51141 R07.89 676769 Rib pain 128889767 R07.8 9 20487609 Health Concerns Section Related Observation LastModified by Organization Detai ls LastModified Time None Recorded Concern Status LastModified by Organization Details LastModified Time None Recorded Payers Encounter Date Sequence Insurance Name Policy Number Policy Escobar Covered Member ID Escobar Member ID Guarantor Name 03/01/2025 1 [employer] - MEDICARE ADVANTAGE PLAN (MEDICARE REPLACEMENT HMO) [id number] Geoffrey Martin [id number] Geoffrey Martin Notes Date Note Type Note Provider Name and Address Organization Details Recorded Time 5 text/htm l Care Management - HypertensionReported by PatientHPIFor self care, patient reportsnot under emotional stress. For severity, patient reportssymptoms are improvinganddoes not interfere with daily activities. For associated symptoms, patient reportsno dizziness,no lightheadedness,no chest pain,no shortness of breath,no palpitations,no edema,no calf muscle cramps,no blurred vision,no confusion,no headaches, andno fatigue.ROS as noted in the HPI here for mwv and is doing ok ecept for the back (chronic)Patient presents for medication refill. bps at home are good Benjamin Parker, DO [address] [facility], [place], [address], [facility] 03/01/2025 11:17:11
--- OUTSIDE RECORDS SUMMARY | 2025-03-01 17:28 | XMS_ITS | Encounter Summary ---
Author Organization [facility] Address [address] [address] Phone Care Team Providers Care Preventive Maintenance Engineer Name Role Phone Benjamin Hurtado DO Primary Care Provider [phone] Encounter Details Date Type Department Care Team (Late st Contact Info) Description 10/24/2020 Transcribe Orders Virtual Department [address] [place] [address] Benjamin Hurtado DO [address] [place] [address] [email or web address] Peripheral vascular disease, unspecified (Primary Dx) Social [...] documented as of this encounter Care Teams Preventive Maintenance Engineer Relationship Specialty Start Date End Date Benjamin Hurtado DO [email or web address] PCP - General 12/17/16 documented as of this encounter Additional Source Comments The information contained in this document represents components of the legal health record. It is not the complete legal health record.[facility]
--- OUTSIDE RECORDS SUMMARY | 2025-03-01 17:28 | XMS_ITS | Encounter Summary ---
Author Organization [facility] Address [address] [address] Phone Care Team Providers Care E Tailer Name Role Phone Benjamin Hurtado DO Primary Care Provider [phone] Encounter Details Date Type Department Care Team (Late st Contact Info) Description 11/22/2020 Transcribe Orders Virtual Department [address] [place] [address] Benjamin Hurtado DO [address] [facility] [place] [address] [email or web address] Irregular heart beat (Primary Dx) Social History [...] documented as of this encounter Care Teams E Tailer Relationship Specialty Start Date End Date Benjamin Hurtado DO [email or web address] PCP - General 12/17/16 documented as of this encounter Additional Source Comments The information contained in this document represents components of the legal health record. It is not the complete legal health record.[facility]
--- OUTSIDE RECORDS SUMMARY | 2025-03-01 17:28 | XMS_ITS | Encounter Summary ---
Author Organization [facility] Address [address] [facility] [address] [place] [address] Phone Care Team Providers Care Information Security Risk Analyst Name Role Phone Benjamin Hurtado DO Primary Care Provider [phone] Reason for Referral * MRI/CAT Scan - Closed Specialty Diagnoses / Procedures Referred By Contthao t Referred To Contact Radiology Diagnoses Spinal stenosis, lumbar region without neurogenic claudication Procedures MRI Lumbar Spine Benjamin Hurtado DO Phone: tel: fax: [email or web address] Referral ID Status Reason Start Date Expiration Date Visits Re quested Visits Authorized [id number] Closed 11/10/2018 11/10/2019 1 1 Encounter Details Date Type Department Care Team (Late st Contact Info) Description 11/10/2018 Transcribe Orders Virtual Department [address] [place] [address] Benjamin Hurtado DO [address] [facility] [place] [address] Spinal stenosis, lumbar region without neurogenic claudication [...] neural foraminal narrowing, as above. POS - [id number] Narrative 11/23/2018 2:00 PM EDT TECHNIQUE: Exam [...] stable mass effect upon the exiting left N8gaecj root and borderline mass effect upon the right L4 nerve. Severeadvanced degenerative facet arthropathy appear stable. L5-S1: There is a grossly stable broad-based disc bulge and minimal grade1 retrolisthesis of the L5 vertebral body without central canal stenosisor acute disc protrusion. There is chronic bilateral neural foraminalnarrowing, grossly stable with apparent mass effect upon the exiting G3clsjv roots unchanged. No vertebral body compression deformity apparent. Minimal reactivesub-endplate marrow edema at L3. Visualized portions of the tip of theconus are unremarkable. No paraspinal soft tissue mass apparent. IMPRESSION: Small broad-based disc protrusions at L2-3 and L4-5 which have progressedsince 2015 leading to increasing central canal stenosis. Grossly stablemultilevel neural foraminal narrowing, as above. POS - [id number] us Benjamin A Bigda DO IMG MR [...] documented as of this encounter Care Teams Information Security Risk Analyst Relationship Specialty Start Date End Date Benjamin Hurtado DO [email or web address] PCP - General 12/17/16 documented as of this encounter Additional Source Comments The information contained in this document represents components of the legal health record. It is not the complete legal health record.[facility]
--- OUTSIDE RECORDS SUMMARY | 2025-03-01 17:28 | XMS_ITS | Encounter Summary ---
Author Organization [facility] Address [address] [facility] [address] [place] [address] Phone Care Team Providers Care Integrated Circuits Inspector Name Role Phone Benjamin Hurtado DO Primary Care Provider Encounter Details Date Type Department Care Team (Late st Contact Info) Description 10/07/2017 Procedure Pass [facility] Endoscopy Admitting Dept Virtual Department [address] [place] [address] Social History Tobacco Use Types Packs/Day Years [...] documented as of this encounter Care Teams Integrated Circuits Inspector Relationship Specialty Start Date End Date Benjamin Hurtado DO PCP - General 12/17/16 documented as of this encounter Additional Source Comments The information contained in this document represents components of the legal health record. It is not the complete legal health record.[facility]
--- OUTSIDE RECORDS SUMMARY | 2025-03-01 17:28 | XMS_ITS | Encounter Summary ---
Author Organization [facility] Address [address] [address] Phone Care Team Providers Care Residential Child Care Counselor Name Role Phone Benjamin Hurtado DO Primary Care Provider [phone] Encounter Details Date Type Department Care Team (Late st Contact Info) Description 03/01/2025 Transcribe Orders Virtual Department [address] [place] [address] Benjamin Hurtado DO [address] [facility] [place] [address] [email or web address] Other chest pain (Primary Dx) Social History Tobacco Use Types [...] as of this encounter Plan of Treatment Scheduled Orders Name Type Priority Associated Diagnoses Orde r Schedule XR Ribs (Left) Imaging Routine Other chest pain Expected: 03/01/2025, Expires: 03/01/2026 documented as of this encounter Visit Diagnoses Diagnosis Other chest pain- Primary documented in this encounter Care Teams Residential Child Care Counselor Relationship Specialty Start Date End Date Benjamin Hurtado DO [email or web address] PCP - General 12/17/16 documented as of this encounter Additional Source Comments The information contained in this document represents components of the legal health record. It is not the complete legal health record.[facility]
--- OUTSIDE RECORDS SUMMARY | 2025-03-01 17:28 | XMS_ITS | Encounter Summary ---
Author Organization [facility] Address [address] [address] Phone Care Team Providers Care Medical Record Clerk Name Role Phone Benjamin Hurtado DO Primary Care Provider [phone] Encounter Details Date Type Department Care Team (Late st Contact Info) Description 08/10/2018 Transcribe Orders [facility] [address] [address] Benjamin Hurtado DO [address] [place] [address] Pure hypercholesterolemia (Primary Dx); Benign prostatic hyperplasia, [...] EDT) SODIUM 142 133 - 146 mmol/L [facility] POTASSIUM 4.5 3.3 - 5.1 mmol/L [facility] CHLORIDE 104 96 - 108 mmol/L [facility] CO2 28 21 - 35 mmol/L [facility] BUN 20(H) 6 - 19 mg/dL [facility] CREATININE 0.90 0.5 - 1.5 mg/dL [facility] GLUCOSE 103(H) 70 - 99 mg/dL [facility] ALBUMIN 3.7(L) 3.9 - 4.8 g/dL [facility] TOTAL PROTEIN 6.7 6.5 - 8.0 g/dL [facility] CALCIUM 9.2 8.4 - 10.3 mg/dL [facility] ALKALINE PHOSPHATASE 82 39 - 117 U/L [facility] TOTAL BILIRUBIN 0.4 0.0 - 1.2 mg/dL [facility] AST 23 0 - 37 U/L [facility] ALT 14 0 - 40 U/L [facility] GLOBULIN 3.0 1 - 4.8 g/dL [facility] EGFR 80 >59 mL/min/1.7 3m2 [facility] Comment:If patient is black, multiply result by 1.159. Estimated glomerular filtration rate calculated using the CKD-EPI equation. ANION GAP 15 10 - 20 mmol/L [facility] Blood 08/10/2018 7:32 AM EDT 08/10/2018 8:13 AM EDT us Benjamin A Bigda DO LAB BLOOD BKR ORDERABLES Final R esult Performing Organization Address City/[facility]/ZIP Co de Phone Number [address] [address] * (ABNORMAL) PSA (screening) (08/10/2018 7:32 AM EDT) PSA 4.90(H) 0 - 4.00 ng/mL [facility] Blood 08/10/2018 7:32 AM EDT 08/10/2018 8:13 AM EDT us Benjamin A Bigda DO LAB BLOOD BKR ORDERABLES Final R esult Performing Organization Address City/[facility]/ZIP Co de Phone Number [address] [address] * (ABNORMAL) Lipid panel (08/10/2018 7:32 AM EDT) HDL 61 mg/dL [facility] Comment: Interpretation <40 mg/dL: Low HDL cholesterol (major risk factor for CHD) Greater than or equal to 60 mg/dL: High HDL cholesterol ( negative risk factor for CHD) HDL - cholesterol is affected by a number of factors, e.g. smoking, excerise, hormones, sex and age. CHOLESTEROL 151 0 - 240 mg/dL [facility] TRIGLYCERIDES 85 30 - 160 mg/dL [facility] LDL 73 50 - 129 mg/dL [facility] Comment: LDL levels in terms of risk for coronary heart disease: <100 mg/dL: Optimal 100-129 mg/dL: Near or above optimal 130-159 mg/dL: Borderline high 160-189 mg/dL: High >190 mg/dL: Very High CARDIAC RISK RATIO 2.5(L) 3.4 - 5.0 [facility] Blood 08/10/2018 7:32 AM EDT 08/10/2018 8:13 AM EDT us Benjamin Hurtado DO LAB BLOOD BKR ORDERABLES Final R esult [address] [address] documented in this encounter Visit Diagnoses Diagnosis [...] documented as of this encounter Care Teams Medical Record Clerk Relationship Specialty Start Date End Date Benjamin Hurtado DO [email or web address] PCP - General 12/17/16 documented as of this encounter Additional Source Comments The information contained in this document represents components of the legal health record. It is not the complete legal health record.[facility]
--- OUTSIDE RECORDS SUMMARY | 2025-03-01 17:28 | XMS_ITS | Encounter Summary ---
Author Organization [facility] Address [address] [address] Phone Care Team Providers Care Environmental Permitting Specialist Name Role Phone Benjamin Hurtado DO Primary Care Provider [phone] Encounter Details Date Type Department Care Team (Late st Contact Info) Description 11/29/2020 Procedure Pass Nino Patillas Non-[facility]vas[facility] Cardiology [address] [place] [address] Social History Tobacco Use Types Packs/Day Years [...] documented as of this encounter Care Teams Environmental Permitting Specialist Relationship Specialty Start Date End Date Benjamin Hurtado DO PCP - General 12/17/16 documented as of this encounter Additional Source Comments The information contained in this document represents components of the legal health record. It is not the complete legal health record.[facility]
--- OUTSIDE RECORDS SUMMARY | 2025-03-01 17:28 | XMS_ITS | Encounter Summary ---
Author Organization [facility] Address [address] [facility] [address] [place] [address] Phone Care Team Providers Care Grocery Store Associate Name Role Phone AlisiaangelaBenjamin DO Primary Care Provider [phone] Encounter Details Date Type Department Care Team (Late st Contact Info) Description 10/31/2020 Ancillary Orders [facility] [address] [facility] [address] [place] [address] Raj Escobar DO [address] [facility] [address] [place] [address] [email or web address] PVD (peripheral vascular disease) Social History Tobacco [...] documented as of this encounter Care Teams Grocery Store Associate Relationship Specialty Start Date End Date Benjamin Hurtado DO [email or web address] PCP - General 12/17/16 documented as of this encounter Additional Source Comments The information contained in this document represents components of the legal health record. It is not the complete legal health record.[facility]
--- OUTSIDE RECORDS SUMMARY | 2025-03-01 17:28 | XMS_ITS | Clinical Summary ---
Author Organization [facility] Address [address] [address] Phone Care Team Providers Care Geospatial Developer Name Role Phone AlisiaangelaBenjamin DO Primary Care Provider [phone] Allergies No known active allergies Medications rosuvastatin [...] Active Active Problems No known active problems Encounters Date Type Department Care Team Description 03/01/2025 Transcribe Orders Virtual Department [address] [place] [address] Benjamin Hurtado, DO Other chest pain (Primary Dx) from Last 3 Months Immunizations Immunization Administration Dates Next Due COVID-19 [...] this topic Medical Devices Implanted Type Area Security Attendant Device Identifier Shelf Expiration Date Model / Serial / Lot Shoulder Description:Left shoulder sc rew Insurance [employer] REPLACEMENT MEDICARE HMO REPLACEMENT [employer] MEDICARE HMO REPLACEMENT [employer] Care Teams Geospatial Developer Relationship Specialty Start Date End Date Benjamin Hurtado DO [email or web address] PCP - General 12/17/16 Additional Source Comments The information contained in this document represents components of the legal health record. It is not the complete legal health record.[facility]
--- OUTSIDE RECORDS SUMMARY | 2025-03-01 17:28 | XMS_ITS | Encounter Summary ---
Author Organization [facility] Address [address] [address] Phone Care Team Providers Care Implementation Director Name Role Phone Benjamin Hurtado DO Primary Care Provider [phone] Encounter Details Date Type Department Care Team (Late st Contact Info) Description 07/14/2017 Transcribe Orders [facility] [address] [address] Benjamin Hurtado DO [address] [facility] [place] [address] [email or web address] Essential hypertension, benign (Primary Dx) Social History [...] EDT) SODIUM 147(H) 133 - 146 mmol/L [facility] POTASSIUM 4.6 3.3 - 5.1 mmol/L [facility] CHLORIDE 98 96 - 108 mmol/L [facility] CO2 28 21 - 35 mmol/L [facility] BUN 20(H) 6 - 19 mg/dL [facility] CREATININE 0.90 0.5 - 1.5 mg/dL [facility] GLUCOSE 95 70 - 99 mg/dL [facility] ALBUMIN 3.8(L) 3.9 - 4.8 g/dL [facility] TOTAL PROTEIN 6.8 6.5 - 8.0 g/dL [facility] CALCIUM 8.9 8.4 - 10.3 mg/dL [facility] ALKALINE PHOSPHATASE 70 39 - 117 U/L [facility] TOTAL BILIRUBIN 0.6 0.0 - 1.2 mg/dL [facility] AST 25 0 - 37 U/L [facility] ALT 19 0 - 40 U/L [facility] GLOBULIN 3.0 1 - 4.8 g/dL [facility] EGFR 81 >59 mL/min/1.7 3m2 [facility] Comment:If patient is black, multiply result by 1.159. The eGFR calculation has changed from the MDRD equation to the CKD-EPI equation as of May 06, 2017. ANION GAP 26(H) 10 - 20 mmol/L [facility] Blood 07/14/2017 8:42 AM EDT 07/14/2017 12:56 PM EDT us Benjamin A Bigda DO LAB BLOOD BKR ORDERABLES Final R esult Performing Organization Address [facility] Co de Phone Number [address] [address] * Hemoglobin A1c (07/14/2017 8:42 AM EDT) HEMOGLOBIN A1C 5.4 4.3 - 5.8 % [facility] Blood 07/14/2017 8:42 AM EDT 07/14/2017 12:56 PM EDT us Benjamin A BigIdeaPaint DO LAB BLOOD BKR ORDERABLES Final R esult Performing Organization Address [facility] Co de Phone Number [address] [address] * (ABNORMAL) Lipid panel (07/14/2017 8:42 AM EDT) HDL 67 mg/dL [facility] Comment: Interpretation: Risk Level Males Decreased >45 mg/dL Average 40-45 mg/dL Increased <40 mg/dL CHOLESTEROL 154 0 - 240 mg/dL [facility] TRIGLYCERIDES 102 30 - 160 mg/dL [facility] LDL 67 50 - 129 mg/dL [facility] Comment: LDL levels in terms of risk for coronary heart disease: <100 mg/dL: Optimal 100-129 mg/dL: Near or above optimal 130-159 mg/dL: Borderline high 160-189 mg/dL: High >190 mg/dL: Very High CARDIAC RISK RATIO 2.3(L) 3.4 - 5.0 C [facility] Blood 07/14/2017 8:42 AM EDT 07/14/2017 12:56 PM EDT us Bnejamin Hurtado DO LAB BLOOD BKR ORDERABLES Final R esult [address] [address] documented in this encounter Visit Diagnoses Diagnosis Essential hypertension, benign- Primary documented in this encounter Additional Health Concerns Infection Onset Date Last Indicated Resolved Time CoV-Risk 10/08/2023 10/08/2023 10/19/2023 1:21 AM EDT CoV-Risk 11/05/2023 11/05/2023 11/05/2023 12:1 4 PM EDT COVID-19 11/05/2023 11/05/2023 11/26/2023 1:24 AM EDT documented as of this encounter Care Teams Implementation Director Relationship Specialty Start Date End Date Benjamin Hurtado DO PCP - General 12/17/16 documented as of this encounter Additional Source Comments The information contained in this document represents components of the legal health record. It is not the complete legal health record.[facility]
--- OUTSIDE RECORDS SUMMARY | 2025-03-01 17:28 | XMS_ITS | Encounter Summary ---
Author Organization [facility] Address [address] [facility] [address] [place] [address] Phone Care Team Providers Care Quality Control Supervisor Name Role Phone AlisiaBenjamin miller Primary Care Provider [phone] Encounter Details Date Type Department Care Team (Latest Contact Info) Description 05/03/2022 Transcribe Orders Virtual Department [address] [place] [address] Evelyne Hutchins PA [address] [place] [address] [place] [address] Right shoulder pain, unspecified chronicity (Primary Dx) [...] documented as of this encounter Care Teams Quality Control Supervisor Relationship Specialty Start Date End Date Benjamin Hurtado DO [email or web address] PCP - General 12/17/16 documented as of this encounter Additional Source Comments The information contained in this document represents components of the legal health record. It is not the complete legal health record.[facility]
== END 2025-03-01 13:35 ==
LOC: HO.XRAY 13:34
PROVIDERS: PCP Internal Medicine; Visit Provider Internal Medicine
DX: R07.89 Other chest pain (principal)
CPT/HCPCS: 71101

== ENCOUNTER → 2025-03-01 13:42 | Outpatient (BNV) | payer MEDICARE, SELFPAY | PROVIDERS: PCP Internal Medicine; Visit Provider Radiology Diagnostic Radiology | DX: R07.89 Other chest pain (principal) | CPT/HCPCS: 71101 ==